=== PATIENT | female | born 1945 | race African-American/Black ===

== ENCOUNTER 2016-11-17 10:55 | Inpatient (IN) | payer MEDICARE, OTHER ==
[~2016-11-17] VITALS: Ht 162.6 cm; Wt 115.0 kg
[~2016-11-17 10:55] MED LIST: AMLO-511 PO; ASPI-1093 PO; ATOR20TA65 PO; CARV12 PO; FURO20 PO; HALO5TAB PO; IBUP-1546 PO; IPRA4AER IH; ISOS60TA4 PO; MONT10TA21 PO; OMEP20 PO; QUET25TA PO; VALS160T2 PO
[2016-11-17 11:08] LABS: GLUCOSE,POINT OF CARE 52 MG/DL (70-110)
[2016-11-17] MEDS ORDERED: IPRATROPIUM BROMIDE 0.5 MG/2.5 ML NEB SOLUTION NEB ONE (11:15)
[2016-11-17] MEDS ORDERED: ALBUTEROL SULFATE 5 MG/ML 20 ML NEB SOLN [BULK] NEB ONE (11:15)
[2016-11-17 11:29] LABS: BASOPHILS % (AUTO) 0.1 % (0.0-2.0); EOSINOPHILS % (AUTO) 0 % (1.0-6.0); HEMATOCRIT 38.3 % (36-46); LYMPHOCYTES # (AUTO) 0.6 K/uL (1.0-4.8); LYMPHOCYTES % (AUTO) 4.7 % (22.0-44.0); MEAN CORPUSCULAR HEMOGLOBIN 25.8 pg (26.0-34.0); MEAN CORPUSCULAR HGB CONC 31.3 G/dL (31.0-37.0); MEAN CORPUSCULAR VOLUME 82 fL (80-100); MONOCYTES # (AUTO) 0.9 K/uL (0.1-1.0); MONOCYTES % (AUTO) 7.7 % (2.0-9.0); NEUTROPHILS # (AUTO) 10.5 K/uL (1.8-7.7); PLATELET COUNT (AUTO) 282 K/uL (150-450); RED BLOOD CELL COUNT(AUTO) 4.64 MIL/uL (4.00-5.20); RED CELL DISTRIBUTION WIDTH 20.1 % (11.5-14.5)
[2016-11-17 11:37] LABS: NEUTROPHILS % (AUTO) 87.5 % (40.0-70.0)
[2016-11-17 11:44] LABS: ANION GAP 13 mmol/L (8-16); CALCIUM, TOTAL 9.3 mg/dL (8.8-10.5); CARBON DIOXIDE 25 mmol/L (22-29); CHLORIDE 102 mmol/L (98-107); CREATININE 1.67 mg/dL (0.60-1.30); GLOMERULAR FILTR. RATE CALC 37 mL/min (>60); POTASSIUM 5.4 mmol/L (3.5-5.1); SODIUM SERUM 140 mmol/L (136-145); UREA NITROGEN, BLOOD 24 mg/dL (7-18)
[2016-11-17 11:47] LABS: GLUCOSE,POINT OF CARE 45 MG/DL (70-110)
[2016-11-17 11:50] LABS: ALANINE AMINOTRANSFERASE 52 U/L (12-78); ALBUMIN 3.6 g/dL (3.4-5.0); ASPARTATE AMINOTRANSFERASE 137 U/L (15-37); BILIRUBIN,TOTAL 2.1 mg/dL (0.1-1.0); TOTAL PROTEIN, SERUM 6.9 g/dL (6.4-8.2)
[2016-11-17] MEDS ORDERED: DEXTROSE 50%-WATER 25 GM/50 ML SYRINGE IVP ONE (12:00)
[2016-11-17 12:04] LABS: B-TYPE NATRIURETIC PEPTIDE 1790 pg/mL (0-100)
[2016-11-17] MEDS ORDERED: SODIUM POLYSTYRENE SULFONATE 15 GM/60 ML SUSPENSION BOTTLE PO ONE (12:15)
[2016-11-17] MEDS ORDERED: SODIUM CHLORIDE 0.9% 500 ML IV ONE (12:15)
[2016-11-17 12:27] LABS: GLUCOSE,POINT OF CARE 131 MG/DL (70-110)
[2016-11-17] MEDS ORDERED: CALCIUM GLUCONATE 100 MG/ML 10 ML IVP ONE (12:30)
[2016-11-17 12:57] LABS: GLUCOSE,POINT OF CARE 185 MG/DL (70-110)
[2016-11-17] MEDS ORDERED: FUROSEMIDE 40 MG/4 ML VIAL IVP ONE (13:15)
[2016-11-17] MEDS ORDERED: LABETALOL HCL 5 MG/ML 20 ML VIAL IVP ONE ×2 (13:45→14:30)
[2016-11-17] MEDS ORDERED: ACETAMINOPHEN 325 MG TABLET PO PRN ×2 (14:00→15:00)
[2016-11-17] MEDS ORDERED: ONDANSETRON HCL 4 MG/2 ML VIAL IVP PRN (14:00)
[2016-11-17] MEDS ORDERED: 0.9% SODIUM CHLORIDE 10 ML SYRINGE IVP PRN (14:00)
[2016-11-17 14:32] LABS: GLUCOSE,POINT OF CARE 118 MG/DL (70-110)
[2016-11-17] MEDS ORDERED: ALBUTEROL SULFATE 2.5 MG/0.5 ML NEB SOLUTION NEB PRN (15:00)
[2016-11-17] MEDS: AmLODIPine BESYLATE 10 MG TABLET PO SCH (15:15)
[2016-11-17] MEDS ORDERED: VANCOMYCIN HCL 1.5 GM in DEXTROSE 5%-WATER 250 ML IV ONE (16:00)
[2016-11-17] MEDS: HEPARIN SODIUM,PORCINE 5,000 UNITS/ML VIAL SQ SCH ×2 (16:19→23:55)
[2016-11-17] MEDS ORDERED: FUROSEMIDE 40 MG/4 ML VIAL IVP SCH (21:00)
[2016-11-17 21:23] VITALS: BP 149/78
[2016-11-17] MEDS: DOCUSATE SODIUM 100 MG CAPSULE PO SCH (21:34)
[2016-11-17 23:38] VITALS: BP 148/74
[2016-11-18] VITALS (7 sets, daily range): BP systolic 140–151; BP diastolic 73–96
[2016-11-18] MEDS: MORPHINE SULFATE 2 MG/ML SYRINGE IVP PRN ×2 (04:34→20:30)
[2016-11-18 06:38] LABS: EOSINOPHILS % (AUTO) 0.1 % (1.0-6.0); HEMATOCRIT 37.7 % (36-46); HEMOGLOBIN 11.8 g/dL (12.0-16.0); LYMPHOCYTES # (AUTO) 1.1 K/uL (1.0-4.8); MEAN CORPUSCULAR HEMOGLOBIN 25.9 pg (26.0-34.0); MEAN CORPUSCULAR HGB CONC 31.2 G/dL (31.0-37.0); MEAN CORPUSCULAR VOLUME 83 fL (80-100); MONOCYTES # (AUTO) 1.4 K/uL (0.1-1.0); MONOCYTES % (AUTO) 10.5 % (2.0-9.0); NEUTROPHILS # (AUTO) 10.8 K/uL (1.8-7.7); NEUTROPHILS % (AUTO) 81.4 % (40.0-70.0); PLATELET COUNT (AUTO) 277 K/uL (150-450); RED BLOOD CELL COUNT(AUTO) 4.54 MIL/uL (4.00-5.20); RED CELL DISTRIBUTION WIDTH 20.5 % (11.5-14.5); WHITE BLOOD COUNT (AUTO) 13.3 K/uL (4.5-11.0)
[2016-11-18 06:50] LABS: CALCIUM, TOTAL 8.7 mg/dL (8.8-10.5); CREATININE 1.49 mg/dL (0.60-1.30); POTASSIUM 4.4 mmol/L (3.5-5.1)
[2016-11-18] MEDS: HEPARIN SODIUM,PORCINE 5,000 UNITS/ML VIAL SQ SCH ×2 (08:20→17:35)
[2016-11-18] MEDS: AmLODIPine BESYLATE 10 MG TABLET PO SCH (08:20)
[2016-11-18] MEDS: PANTOPRAZOLE SODIUM 40 MG DR TABLET PO SCH (08:20)
[2016-11-18] MEDS: DOCUSATE SODIUM 100 MG CAPSULE PO SCH ×2 (08:21→20:31)
[2016-11-18] MEDS: ASPIRIN 81 MG CHEWABLE TABLET PO SCH (08:21)
[2016-11-18] MEDS: VANCOMYCIN HCL 1.5 GM in DEXTROSE 5%-WATER 250 ML IV SCH (08:21)
[2016-11-18] MEDS: OxyCODONE HCL/ACETAMINOPHEN 5-325 MG TABLET PO PRN (08:21)
[2016-11-18] MEDS ORDERED: SODIUM CHLORIDE 0.9% 500 ML IV ONE (08:29)
[2016-11-18] MEDS ORDERED: FUROSEMIDE 40 MG/4 ML VIAL IVP SCH (09:00)
[2016-11-18 10:27] LABS: RBC MORPHOLOGY COMMENT ABNORMAL RBC MORPH
[2016-11-18] MEDS: FUROSEMIDE 40 MG/4 ML VIAL IVP SCH (20:30)
[2016-11-18] MEDS: NYSTATIN 15 GM POWDER BOTTLE TP SCH (21:06)
[2016-11-19] MEDS: HEPARIN SODIUM,PORCINE 5,000 UNITS/ML VIAL SQ SCH ×4 (00:15→23:43)
[2016-11-19 04:53] VITALS: BP 124/84
[2016-11-19] MEDS: OxyCODONE HCL/ACETAMINOPHEN 5-325 MG TABLET PO PRN (04:53)
[2016-11-19 06:46] LABS: EOSINOPHILS # (AUTO) 0.01 K/uL (0.00-0.70); HEMATOCRIT 36.7 % (36-46); HEMOGLOBIN 11.7 g/dL (12.0-16.0); LYMPHOCYTES # (AUTO) 1.2 K/uL (1.0-4.8); LYMPHOCYTES % (AUTO) 9.8 % (22.0-44.0); MEAN CORPUSCULAR HEMOGLOBIN 26.1 pg (26.0-34.0); MEAN CORPUSCULAR VOLUME 82 fL (80-100); MONOCYTES # (AUTO) 1.2 K/uL (0.1-1.0); MONOCYTES % (AUTO) 10.3 % (2.0-9.0); NEUTROPHILS # (AUTO) 9.5 K/uL (1.8-7.7); NEUTROPHILS % (AUTO) 79.8 % (40.0-70.0); PLATELET COUNT (AUTO) 247 K/uL (150-450); RED BLOOD CELL COUNT(AUTO) 4.49 MIL/uL (4.00-5.20); RED CELL DISTRIBUTION WIDTH 19.8 % (11.5-14.5); WHITE BLOOD COUNT (AUTO) 11.9 K/uL (4.5-11.0)
[2016-11-19 06:57] LABS: CALCIUM, TOTAL 8.2 mg/dL (8.8-10.5); CREATININE 1.28 mg/dL (0.60-1.30); POTASSIUM 3.4 mmol/L (3.5-5.1)
[2016-11-19 07:45] VITALS: BP 123/78
[2016-11-19 08:20] LABS: RBC MORPHOLOGY COMMENT ABNORMAL RBC MORPH
[2016-11-19] MEDS: FUROSEMIDE 40 MG/4 ML VIAL IVP SCH ×2 (08:31→19:24)
[2016-11-19] MEDS: DOCUSATE SODIUM 100 MG CAPSULE PO SCH ×2 (08:31→19:24)
[2016-11-19] MEDS: ASPIRIN 81 MG CHEWABLE TABLET PO SCH (08:31)
[2016-11-19] MEDS: AmLODIPine BESYLATE 10 MG TABLET PO SCH (08:32)
[2016-11-19] MEDS: PANTOPRAZOLE SODIUM 40 MG DR TABLET PO SCH (08:32)
[2016-11-19] MEDS: MORPHINE SULFATE 2 MG/ML SYRINGE IVP PRN (08:50)
[2016-11-19] MEDS: NYSTATIN 15 GM POWDER BOTTLE TP SCH ×2 (08:51→19:24)
[2016-11-19] MEDS: VANCOMYCIN HCL 1.5 GM in DEXTROSE 5%-WATER 250 ML IV SCH (11:10)
[2016-11-19 11:29] VITALS: BP 156/85
[2016-11-19] MEDS ORDERED: 0.9% SODIUM CHLORIDE 5 ML NEB SOLUTION NEB ONE ×2 (13:45→23:52)
[2016-11-19 15:30] VITALS: BP 129/75
[2016-11-19] MEDS: POTASSIUM CHLORIDE 20 MEQ ER TABLET PO PRN (19:24)
[2016-11-19 19:38] VITALS: BP 132/91
[2016-11-19 23:31] VITALS: BP 136/90
[2016-11-20 04:58] VITALS: BP 133/77
[2016-11-20 05:51] LABS: BASOPHILS % (AUTO) 0.3 % (0.0-2.0); EOSINOPHILS % (AUTO) 0.4 % (1.0-6.0); HEMATOCRIT 38.8 % (36-46); HEMOGLOBIN 11.9 g/dL (12.0-16.0); LYMPHOCYTES # (AUTO) 1.1 K/uL (1.0-4.8); LYMPHOCYTES % (AUTO) 11.8 % (22.0-44.0); MEAN CORPUSCULAR HEMOGLOBIN 25.4 pg (26.0-34.0); MEAN CORPUSCULAR HGB CONC 30.7 G/dL (31.0-37.0); MEAN CORPUSCULAR VOLUME 83 fL (80-100); MONOCYTES % (AUTO) 10.2 % (2.0-9.0); NEUTROPHILS # (AUTO) 7.4 K/uL (1.8-7.7); NEUTROPHILS % (AUTO) 77.3 % (40.0-70.0); PLATELET COUNT (AUTO) 245 K/uL (150-450); RED BLOOD CELL COUNT(AUTO) 4.69 MIL/uL (4.00-5.20); RED CELL DISTRIBUTION WIDTH 20.1 % (11.5-14.5); WHITE BLOOD COUNT (AUTO) 9.5 K/uL (4.5-11.0)
[2016-11-20 06:02] LABS: CALCIUM, TOTAL 7.8 mg/dL (8.8-10.5); CREATININE 1.1 mg/dL (0.60-1.30)
[2016-11-20 07:10] VITALS: BP 106/74
[2016-11-20] MEDS: HEPARIN SODIUM,PORCINE 5,000 UNITS/ML VIAL SQ SCH ×3 (08:40→23:39)
[2016-11-20] MEDS: FUROSEMIDE 40 MG/4 ML VIAL IVP SCH ×2 (08:40→21:11)
[2016-11-20] MEDS: AmLODIPine BESYLATE 10 MG TABLET PO SCH (08:40)
[2016-11-20] MEDS: PANTOPRAZOLE SODIUM 40 MG DR TABLET PO SCH (08:40)
[2016-11-20] MEDS: ASPIRIN 81 MG CHEWABLE TABLET PO SCH (08:40)
[2016-11-20] MEDS: MULTIVITAMINS WITH MINERALS, THERAPEUTIC TABLET PO SCH (08:40)
[2016-11-20] MEDS: DOCUSATE SODIUM 100 MG CAPSULE PO SCH ×2 (08:40→21:11)
[2016-11-20] MEDS: VANCOMYCIN HCL 1 GM/D5% WATER 200 ML IV SCH ×2 (08:41→21:11)
[2016-11-20] MEDS: NYSTATIN 15 GM POWDER BOTTLE TP SCH ×2 (08:42→21:13)
[2016-11-20 08:53] LABS: RBC MORPHOLOGY COMMENT ABNORMAL RBC MORPH
[2016-11-20] MEDS: POTASSIUM CHLORIDE 20 MEQ ER TABLET PO PRN (08:53)
[2016-11-20 11:34] VITALS: BP 128/98
[2016-11-20 16:23] VITALS: BP 119/80
[2016-11-20 19:27] VITALS: BP 140/82
[2016-11-20] MEDS ORDERED: 0.9% SODIUM CHLORIDE 10 ML SYRINGE IVP PRN (22:15)
[2016-11-20] MEDS: POTASSIUM CHL 10 MEQ/WATER 50 ML IV PRN (23:39)
[2016-11-20 23:58] VITALS: BP 144/77
[2016-11-21] MEDS: POTASSIUM CHL 10 MEQ/WATER 50 ML IV PRN ×3 (00:55→03:41)
[2016-11-21 04:48] VITALS: BP 138/83
[2016-11-21 06:27] LABS: ANION GAP 6 mmol/L (8-16); CALCIUM, TOTAL 7.9 mg/dL (8.8-10.5); CARBON DIOXIDE 38 mmol/L (22-29); CHLORIDE 97 mmol/L (98-107); CREATININE 0.88 mg/dL (0.60-1.30); GLOMERULAR FILTR. RATE CALC > 60 mL/min (>60); SODIUM SERUM 141 mmol/L (136-145); UREA NITROGEN, BLOOD 14 mg/dL (7-18)
[2016-11-21 07:59] VITALS: BP 141/87
[2016-11-21] MEDS: VANCOMYCIN HCL 1 GM/D5% WATER 200 ML IV SCH ×2 (08:20→20:44)
[2016-11-21] MEDS: FUROSEMIDE 40 MG/4 ML VIAL IVP SCH ×2 (08:21→20:45)
[2016-11-21] MEDS: PANTOPRAZOLE SODIUM 40 MG DR TABLET PO SCH (08:37)
[2016-11-21] MEDS: DOCUSATE SODIUM 100 MG CAPSULE PO SCH ×2 (08:37→20:45)
[2016-11-21] MEDS: ASPIRIN 81 MG CHEWABLE TABLET PO SCH (08:37)
[2016-11-21] MEDS: AmLODIPine BESYLATE 10 MG TABLET PO SCH (08:37)
[2016-11-21] MEDS: HEPARIN SODIUM,PORCINE 5,000 UNITS/ML VIAL SQ SCH ×2 (08:38→18:08)
[2016-11-21] MEDS: NYSTATIN 15 GM POWDER BOTTLE TP SCH ×2 (08:38→20:45)
[2016-11-21] MEDS: MULTIVITAMINS WITH MINERALS, THERAPEUTIC TABLET PO SCH (08:38)
[2016-11-21 12:00] VITALS: BP 134/73
[2016-11-21 15:47] VITALS: BP 112/58
[2016-11-21] MEDS: POTASSIUM CHLORIDE 20 MEQ ER TABLET PO PRN ×2 (18:40→20:44)
[2016-11-21 19:58] VITALS: BP 137/78
[2016-11-22 00:23] VITALS: BP 159/84
[2016-11-22] MEDS: HEPARIN SODIUM,PORCINE 5,000 UNITS/ML VIAL SQ SCH ×3 (00:24→16:19)
[2016-11-22] MEDS: POTASSIUM CHLORIDE 20 MEQ ER TABLET PO PRN ×2 (04:21→14:11)
[2016-11-22 05:05] VITALS: BP 157/90
[2016-11-22] MEDS: MULTIVITAMINS WITH MINERALS, THERAPEUTIC TABLET PO SCH (07:55)
[2016-11-22] MEDS: DOCUSATE SODIUM 100 MG CAPSULE PO SCH (07:55)
[2016-11-22] MEDS: FUROSEMIDE 40 MG/4 ML VIAL IVP SCH (07:55)
[2016-11-22] MEDS: ASPIRIN 81 MG CHEWABLE TABLET PO SCH (07:55)
[2016-11-22] MEDS: AmLODIPine BESYLATE 10 MG TABLET PO SCH (07:55)
[2016-11-22] MEDS: PANTOPRAZOLE SODIUM 40 MG DR TABLET PO SCH (07:55)
[2016-11-22] MEDS: VANCOMYCIN HCL 1 GM/D5% WATER 200 ML IV SCH (07:56)
[2016-11-22 07:57] VITALS: BP 146/103
[2016-11-22] MEDS: NYSTATIN 15 GM POWDER BOTTLE TP SCH (07:58)
[2016-11-22 09:44] LABS: ANION GAP 2 mmol/L (8-16); CALCIUM, TOTAL 7.9 mg/dL (8.8-10.5); CHLORIDE 93 mmol/L (98-107); CREATININE 0.89 mg/dL (0.60-1.30); GLOMERULAR FILTR. RATE CALC > 60 mL/min (>60); POTASSIUM 3.4 mmol/L (3.5-5.1); SODIUM SERUM 137 mmol/L (136-145); UREA NITROGEN, BLOOD 11 mg/dL (7-18)
[2016-11-22 09:46] LABS: CARBON DIOXIDE 42 mmol/L (22-29)
[2016-11-22 11:49] VITALS: BP 146/80
[2016-11-22 15:41] VITALS: BP 148/90
[2016-11-22] MEDS ORDERED: FUROSEMIDE 40 MG TABLET PO SCH (21:00)
== END 2016-11-22 18:41 | DRG 682 ==
LOC: EMS 10:57 → 5N 16:01 → 6N 11-18 21:00
PROVIDERS: ADMIT Internal Medicine; ATTEND Internal Medicine
DX: N17.9 Acute kidney failure, unspecified (principal); I50.33 Acute on chronic diastolic (congestive) heart failure; E44.0 Moderate protein-calorie malnutrition; J44.1 Chronic obstructive pulmonary disease with (acute) exacerbation; I13.0 Hypertensive heart and chronic kidney disease with heart failure and stage 1 through stage 4 chronic kidney disease, or unspecified chronic kidney disease; Z68.41 Body mass index [BMI] 40.0-44.9, adult; N18.3 Chronic kidney disease, stage 3 (moderate); E66.01 Morbid (severe) obesity due to excess calories; N61.0 Mastitis without abscess; J45.909 Unspecified asthma, uncomplicated; E78.00 Pure hypercholesterolemia, unspecified; F17.210 Nicotine dependence, cigarettes, uncomplicated; E11.649 Type 2 diabetes mellitus with hypoglycemia without coma; E11.65 Type 2 diabetes mellitus with hyperglycemia; M19.90 Unspecified osteoarthritis, unspecified site; F20.9 Schizophrenia, unspecified; I25.10 Atherosclerotic heart disease of native coronary artery without angina pectoris; Z79.4 Long term (current) use of insulin; Z99.81 Dependence on supplemental oxygen; Z79.84 Long term (current) use of oral hypoglycemic drugs; Z79.82 Long term (current) use of aspirin; Z79.51 Long term (current) use of inhaled steroids; Z79.899 Other long term (current) drug therapy; Z90.710 Acquired absence of both cervix and uterus; Z90.49 Acquired absence of other specified parts of digestive tract; Z71.6 Tobacco abuse counseling; Z86.73 Personal history of transient ischemic attack (TIA), and cerebral infarction without residual deficits
CPT/HCPCS: 71250; 82948; 82962; 84132; 93005; 94640; 96361; 96374; 96375; 96376; 97163; 97530; 99285; G0480; J0610; J1644; J1940; J2270; J3370; J3480; J3490; J7030; J7040; J7060

== ENCOUNTER 2016-12-08 18:31 | Inpatient (IN) | payer MEDICARE, OTHER ==
[~2016-12-08] VITALS: Ht 162.6 cm; Wt 88.7 kg
[~2016-12-08 18:31] MED LIST changes: -AMLO-511 PO; -FURO20 PO; -IBUP-1546 PO; -ISOS60TA4 PO; -VALS160T2 PO
[2016-12-08] MEDS ORDERED: PANT40TA25 PO (18:47)
[2016-12-08] MEDS ORDERED: HEPA100D17 SQ (18:47)
[2016-12-08] MEDS ORDERED: AMLO-512 PO (18:47)
[2016-12-08] MEDS ORDERED: FURO40 PO (18:47)
[2016-12-08] MEDS ORDERED: DSS100 PO (18:47)
[2016-12-08] MEDS ORDERED: FUROSEMIDE 40 MG/4 ML VIAL IVP ONE (19:00)
[2016-12-08] MEDS ORDERED: CefTRIAXone 1 GM/DEXTROSE 50 ML IV ONE (19:00)
[2016-12-08 19:01] LABS: GLUCOSE,POINT OF CARE 135 MG/DL (70-110)
[2016-12-08] MEDS ORDERED: IPRATROPIUM BROMIDE 0.5 MG/2.5 ML NEB SOLUTION NEB ONE (19:15)
[2016-12-08] MEDS ORDERED: ALBUTEROL SULFATE 5 MG/ML 20 ML NEB SOLN [BULK] NEB ONE (19:15)
[2016-12-08 19:41] LABS: HEMATOCRIT 32.8 % (36-46); HEMOGLOBIN 10.7 g/dL (12.0-16.0); MEAN CORPUSCULAR HEMOGLOBIN 26.2 pg (26.0-34.0); MEAN CORPUSCULAR HGB CONC 32.7 G/dL (31.0-37.0); MEAN CORPUSCULAR VOLUME 80 fL (80-100); PLATELET COUNT (AUTO) 285 K/uL (150-450); RED BLOOD CELL COUNT(AUTO) 4.09 MIL/uL (4.00-5.20); RED CELL DISTRIBUTION WIDTH 20.2 % (11.5-14.5); WHITE BLOOD COUNT (AUTO) 16.8 K/uL (4.5-11.0)
[2016-12-08 19:47] LABS: CALCIUM, TOTAL 9.2 mg/dL (8.8-10.5); CREATININE 1.21 mg/dL (0.60-1.30); GLOMERULAR FILTR. RATE CALC 53 mL/min (>60); POTASSIUM 3.5 mmol/L (3.5-5.1); UREA NITROGEN, BLOOD 25 mg/dL (7-18)
[2016-12-08 19:48] LABS: ANION GAP 8 mmol/L (8-16); CARBON DIOXIDE 33 mmol/L (22-29); CHLORIDE 94 mmol/L (98-107); SODIUM SERUM 135 mmol/L (136-145)
[2016-12-08 19:52] LABS: INR 1.3 (0.9-1.1); PROTHROMBIN TIME 13.7 SEC (9.4-11.6)
[2016-12-08 19:53] LABS: ALANINE AMINOTRANSFERASE 53 U/L (12-78); ALBUMIN 2.9 g/dL (3.4-5.0)
[2016-12-08 19:55] LABS: LACTIC ACID 1.6 mmol/L (0.4-2.0)
[2016-12-08] MEDS ORDERED: OXYGEN THERAPY IH SCH (20:00)
[2016-12-08 20:03] LABS: APPEARANCE,URINE CLOUDY (CLEAR); GLUCOSE, URINE (UA) NEGATIVE (NEGATIVE); KETONES,URINE NEGATIVE (NEGATIVE); LEUKOCYTE ESTERASE ,URINE TRACE (NEGATIVE); OCCULT BLOOD,URINE NEGATIVE (NEGATIVE); PH,URINE 5.5 (5.0-8.0); PROTEIN,URINE SEE CONFIRM (NEGATIVE)
[2016-12-08 20:09] LABS: ASPARTATE AMINOTRANSFERASE 77 U/L (15-37); BILIRUBIN,TOTAL 1.8 mg/dL (0.1-1.0); CREATINE KINASE, TOTAL 27 U/L (26-192); TOTAL PROTEIN, SERUM 7.5 g/dL (6.4-8.2)
[2016-12-08 20:11] LABS: B-TYPE NATRIURETIC PEPTIDE 1630 pg/mL (0-100)
[2016-12-08] MEDS ORDERED: ACETAMINOPHEN 500 MG TABLET PO ONE (20:15)
[2016-12-08 20:22] LABS: AMORPHOUS SEDIMENT,UR Few /LPF (None Seen); RBC,URINE 0-2 /HPF (0-2); SQUAMOUS EPITHELIAL CELL,UR Few /LPF (None Seen); SULFOSALICYLIC ACID,URINE 2+ (Negative)
[2016-12-08 20:35] LABS: INFLUENZA TYPE B NEGATIVE FOR TYPE B (NEGATIVE)
[2016-12-08 20:41] LABS: ABG A-A DIFF O2 128.3 mmHg (10-20.0); ABG OXYHEMOGLOBIN 82.3 % (94.0-100.0); ABG PCO2 56 mmHg (35-45); ABG PH 7.409 (7.35-7.450); TEMPERATURE, FAHRENHEIT, BG 100.3 FAHREN (96.0-98.6)
[2016-12-08 20:42] LABS: ALLEN TEST, BLOOD GAS Positive; IPAP, BG 16 cm H2O
[2016-12-08 20:57] LABS: BAND NEUTROPHILS % (MANUAL) 35 % (1-5); LYMPHOCYTES % (MANUAL) 6 % (22-44); TOTAL CELLS COUNTED 100
[2016-12-08 20:58] LABS: RBC MORPHOLOGY COMMENT ABNORMAL RBC MORPH
[2016-12-08 21:03] LABS: PROCALCITONIN (PCT) 0.64 ng/mL (<0.50)
[2016-12-08] MEDS ORDERED: ACETAMINOPHEN 325 MG TABLET PO PRN (21:45)
[2016-12-08] MEDS ORDERED: MAGNESIUM HYDROXIDE SUSPENSION 30 ML UDCUP PO PRN (21:45)
[2016-12-08 22:49] VITALS: BP 146/80
[2016-12-08] MEDS ORDERED: VANCOMYCIN HCL 1 GM/D5% WATER 200 ML IV ONE (23:00)
[2016-12-08] MEDS: ALBUTEROL SULFATE 2.5 MG/0.5 ML NEB SOLUTION NEB SCH (23:00)
[2016-12-08] MEDS: IPRATROPIUM BROMIDE 0.5 MG/2.5 ML NEB SOLUTION NEB SCH (23:00)
[2016-12-08] MEDS ORDERED: VANCOMYCIN HCL 1.5 GM in DEXTROSE 5%-WATER 250 ML IV ONE (23:00)
[2016-12-08] MEDS: PIPERACILLIN/TAZO 3.375 GM/D5W 50 ML IV SCH (23:58)
[2016-12-08] MEDS: HEPARIN SODIUM,PORCINE 5,000 UNITS/ML VIAL SQ SCH (23:58)
[2016-12-09] MEDS ORDERED: VANCOMYCIN HCL 1 GM/D5% WATER 200 ML IV ONE (01:00)
[2016-12-09] MEDS: ALBUTEROL SULFATE 2.5 MG/0.5 ML NEB SOLUTION NEB SCH ×6 (02:49→23:03)
[2016-12-09] MEDS: IPRATROPIUM BROMIDE 0.5 MG/2.5 ML NEB SOLUTION NEB SCH ×6 (02:49→23:03)
[2016-12-09 04:32] VITALS: BP 136/83
[2016-12-09] MEDS: PIPERACILLIN/TAZO 3.375 GM/D5W 50 ML IV SCH ×4 (06:00→23:25)
[2016-12-09 06:13] LABS: BASOPHILS % (AUTO) 0.2 % (0.0-2.0); EOSINOPHILS % (AUTO) 0 % (1.0-6.0); HEMATOCRIT 33.1 % (36-46); HEMOGLOBIN 10.4 g/dL (12.0-16.0); LYMPHOCYTES % (AUTO) 5.8 % (22.0-44.0); MEAN CORPUSCULAR HEMOGLOBIN 25.7 pg (26.0-34.0); MEAN CORPUSCULAR HGB CONC 31.5 G/dL (31.0-37.0); MEAN CORPUSCULAR VOLUME 82 fL (80-100); MONOCYTES # (AUTO) 0.7 K/uL (0.1-1.0); MONOCYTES % (AUTO) 3.9 % (2.0-9.0); NEUTROPHILS # (AUTO) 15.6 K/uL (1.8-7.7); PLATELET COUNT (AUTO) 281 K/uL (150-450); RED BLOOD CELL COUNT(AUTO) 4.06 MIL/uL (4.00-5.20); RED CELL DISTRIBUTION WIDTH 21.3 % (11.5-14.5); WHITE BLOOD COUNT (AUTO) 17.3 K/uL (4.5-11.0)
[2016-12-09 06:28] LABS: ANION GAP 6 mmol/L (8-16); CALCIUM, TOTAL 8.9 mg/dL (8.8-10.5); CARBON DIOXIDE 36 mmol/L (22-29); CHLORIDE 95 mmol/L (98-107); CREATININE 1.07 mg/dL (0.60-1.30); GLOMERULAR FILTR. RATE CALC > 60 mL/min (>60); POTASSIUM 3.1 mmol/L (3.5-5.1); SODIUM SERUM 137 mmol/L (136-145); UREA NITROGEN, BLOOD 23 mg/dL (7-18)
[2016-12-09 06:44] LABS: NEUTROPHILS % (AUTO) 90.1 % (40.0-70.0)
[2016-12-09 07:45] VITALS: BP 124/80
[2016-12-09] MEDS: HEPARIN SODIUM,PORCINE 5,000 UNITS/ML VIAL SQ SCH ×4 (07:53→23:38)
[2016-12-09] MEDS: FUROSEMIDE 40 MG/4 ML VIAL IVP SCH ×2 (07:55→20:16)
[2016-12-09] MEDS ORDERED: PNEUMOCOCCAL VACCINE POLYVALENT 0.5 ML VIAL [PPSV23] IM ONE (08:00)
[2016-12-09] MEDS ORDERED: VANCOMYCIN HCL 1.5 GM in DEXTROSE 5%-WATER 250 ML IV SCH (08:00)
[2016-12-09] MEDS: DOCUSATE SODIUM 100 MG CAPSULE PO SCH ×2 (08:16→20:16)
[2016-12-09] MEDS: ASPIRIN 81 MG CHEWABLE TABLET PO SCH (08:16)
[2016-12-09] MEDS: PANTOPRAZOLE SODIUM 40 MG DR TABLET PO SCH (08:16)
[2016-12-09] MEDS ORDERED: POTASSIUM CHLORIDE 20 MEQ ER TABLET PO PRN (09:15)
[2016-12-09] MEDS: POTASSIUM CHL 10 MEQ/WATER 50 ML IV PRN ×3 (10:15→14:10)
[2016-12-09] MEDS ORDERED: 0.9% SODIUM CHLORIDE 10 ML SYRINGE IVP PRN (11:15)
[2016-12-09 11:31] VITALS: BP 149/81
[2016-12-09 15:49] VITALS: BP 132/76
[2016-12-09] MEDS ORDERED: HALOPERIDOL LACTATE 5 MG/ML VIAL IVP PRN (16:45)
[2016-12-09] MEDS: MethylPREDNISolone SOD SUCC 125 MG/2 ML VIAL IVP SCH ×2 (17:11→23:24)
[2016-12-09] MEDS ORDERED: CefTRIAXone 1 GM/DEXTROSE 50 ML IV SCH (18:00)
[2016-12-09 19:45] VITALS: BP 135/82
[2016-12-09] MEDS: VANCOMYCIN HCL 1 GM/D5% WATER 200 ML IV SCH (20:16)
[2016-12-09] MEDS: ZOLPIDEM TARTRATE 10 MG TABLET PO PRN (23:24)
[2016-12-09 23:41] VITALS: BP 134/76
[2016-12-10] MEDS: ALBUTEROL SULFATE 2.5 MG/0.5 ML NEB SOLUTION NEB SCH ×6 (03:09→23:12)
[2016-12-10] MEDS: IPRATROPIUM BROMIDE 0.5 MG/2.5 ML NEB SOLUTION NEB SCH ×6 (03:09→23:11)
[2016-12-10 03:23] VITALS: BP 138/76
[2016-12-10] MEDS: PIPERACILLIN/TAZO 3.375 GM/D5W 50 ML IV SCH ×3 (05:17→18:14)
[2016-12-10] MEDS: MethylPREDNISolone SOD SUCC 125 MG/2 ML VIAL IVP SCH ×3 (05:17→18:14)
[2016-12-10 07:03] LABS: ANION GAP 7 mmol/L (8-16); CALCIUM, TOTAL 9.2 mg/dL (8.8-10.5); CARBON DIOXIDE 35 mmol/L (22-29); CHLORIDE 94 mmol/L (98-107); CREATININE 1.06 mg/dL (0.60-1.30); GLOMERULAR FILTR. RATE CALC > 60 mL/min (>60); POTASSIUM 3.6 mmol/L (3.5-5.1); SODIUM SERUM 136 mmol/L (136-145); UREA NITROGEN, BLOOD 21 mg/dL (7-18)
[2016-12-10 07:08] LABS: EOSINOPHILS % (AUTO) 0 % (1.0-6.0); HEMATOCRIT 32.5 % (36-46); HEMOGLOBIN 10.4 g/dL (12.0-16.0); LYMPHOCYTES # (AUTO) 0.6 K/uL (1.0-4.8); LYMPHOCYTES % (AUTO) 3.9 % (22.0-44.0); MEAN CORPUSCULAR HEMOGLOBIN 26.2 pg (26.0-34.0); MEAN CORPUSCULAR VOLUME 82 fL (80-100); MONOCYTES # (AUTO) 0.2 K/uL (0.1-1.0); MONOCYTES % (AUTO) 1.7 % (2.0-9.0); PLATELET COUNT (AUTO) 256 K/uL (150-450); RED BLOOD CELL COUNT(AUTO) 3.97 MIL/uL (4.00-5.20); RED CELL DISTRIBUTION WIDTH 20.7 % (11.5-14.5); WHITE BLOOD COUNT (AUTO) 14.8 K/uL (4.5-11.0)
[2016-12-10 07:09] LABS: NEUTROPHILS % (AUTO) 94.5 % (40.0-70.0); RBC MORPHOLOGY COMMENT ABNORMAL RBC MORPH
[2016-12-10 08:12] VITALS: BP 141/85
[2016-12-10] MEDS: FUROSEMIDE 40 MG/4 ML VIAL IVP SCH ×2 (08:29→20:26)
[2016-12-10] MEDS: HEPARIN SODIUM,PORCINE 5,000 UNITS/ML VIAL SQ SCH ×2 (08:30→14:55)
[2016-12-10] MEDS: VANCOMYCIN HCL 1 GM/D5% WATER 200 ML IV SCH ×2 (08:30→20:26)
[2016-12-10] MEDS: PANTOPRAZOLE SODIUM 40 MG DR TABLET PO SCH (08:30)
[2016-12-10] MEDS: DOCUSATE SODIUM 100 MG CAPSULE PO SCH ×2 (08:30→20:27)
[2016-12-10] MEDS: ASPIRIN 81 MG CHEWABLE TABLET PO SCH (08:30)
[2016-12-10 11:24] VITALS: BP 150/87
[2016-12-10] MEDS ORDERED: HEPA500017 SQ (13:18)
[2016-12-10] MEDS: QUEtiapine FUMARATE 25 MG TABLET PO SCH ×2 (14:51→20:27)
[2016-12-10 16:13] VITALS: BP 147/82
[2016-12-10 19:40] VITALS: BP 150/88
[2016-12-10] MEDS: ZOLPIDEM TARTRATE 10 MG TABLET PO PRN (21:10)
[2016-12-11 00:09] VITALS: BP 141/82
[2016-12-11] MEDS: MethylPREDNISolone SOD SUCC 125 MG/2 ML VIAL IVP SCH ×2 (00:46→05:15)
[2016-12-11] MEDS: PIPERACILLIN/TAZO 3.375 GM/D5W 50 ML IV SCH ×4 (00:46→17:20)
[2016-12-11] MEDS: IPRATROPIUM BROMIDE 0.5 MG/2.5 ML NEB SOLUTION NEB SCH ×6 (03:35→23:00)
[2016-12-11] MEDS: ALBUTEROL SULFATE 2.5 MG/0.5 ML NEB SOLUTION NEB SCH ×6 (03:35→23:00)
[2016-12-11 04:18] VITALS: BP 138/79
[2016-12-11 07:13] VITALS: BP 147/90
[2016-12-11 07:38] LABS: EOSINOPHILS % (AUTO) 0 % (1.0-6.0); HEMATOCRIT 32.5 % (36-46); HEMOGLOBIN 10.2 g/dL (12.0-16.0); LYMPHOCYTES # (AUTO) 0.9 K/uL (1.0-4.8); LYMPHOCYTES % (AUTO) 4.9 % (22.0-44.0); MEAN CORPUSCULAR HEMOGLOBIN 25.4 pg (26.0-34.0); MEAN CORPUSCULAR HGB CONC 31.4 G/dL (31.0-37.0); MEAN CORPUSCULAR VOLUME 81 fL (80-100); MONOCYTES # (AUTO) 0.4 K/uL (0.1-1.0); NEUTROPHILS # (AUTO) 16.9 K/uL (1.8-7.7); PLATELET COUNT (AUTO) 239 K/uL (150-450); RED BLOOD CELL COUNT(AUTO) 4.03 MIL/uL (4.00-5.20); RED CELL DISTRIBUTION WIDTH 20.5 % (11.5-14.5); WHITE BLOOD COUNT (AUTO) 18.2 K/uL (4.5-11.0)
[2016-12-11 08:00] LABS: NEUTROPHILS % (AUTO) 93.1 % (40.0-70.0)
[2016-12-11 08:07] LABS: CALCIUM, TOTAL 9.1 mg/dL (8.8-10.5); CREATININE 1.29 mg/dL (0.60-1.30); POTASSIUM 3.5 mmol/L (3.5-5.1)
[2016-12-11] MEDS: HEPARIN SODIUM,PORCINE 5,000 UNITS/ML VIAL SQ SCH ×3 (08:45→15:22)
[2016-12-11] MEDS: DOCUSATE SODIUM 100 MG CAPSULE PO SCH ×2 (08:46→21:08)
[2016-12-11] MEDS: FUROSEMIDE 40 MG/4 ML VIAL IVP SCH ×2 (08:46→21:08)
[2016-12-11] MEDS: QUEtiapine FUMARATE 25 MG TABLET PO SCH ×2 (08:46→21:09)
[2016-12-11] MEDS: ASPIRIN 81 MG CHEWABLE TABLET PO SCH (08:46)
[2016-12-11] MEDS: PANTOPRAZOLE SODIUM 40 MG DR TABLET PO SCH (08:46)
[2016-12-11] MEDS: VANCOMYCIN HCL 1 GM/D5% WATER 200 ML IV SCH (08:47)
[2016-12-11 09:44] LABS: RBC MORPHOLOGY COMMENT ABNORMAL RBC MORPH
[2016-12-11 11:30] VITALS: BP 148/109
[2016-12-11] MEDS ORDERED: VANCOMYCIN HCL 1 GM/D5% WATER 200 ML IV PRN (12:00)
[2016-12-11 15:03] VITALS: BP 150/98
[2016-12-11] MEDS: MethylPREDNISolone SOD SUCC 40 MG/ML VIAL IVP SCH (17:19)
[2016-12-11 20:34] VITALS: BP 164/109
[2016-12-11] MEDS: OxyCODONE HCL/ACETAMINOPHEN 10-325 MG TABLET PO SCH (21:08)
[2016-12-11] MEDS: MUPIROCIN CALCIUM 2% 22 GM OINTMENT NASAL SCH (21:08)
[2016-12-12] VITALS (7 sets, daily range): BP systolic 140–161; BP diastolic 94–109
[2016-12-12] MEDS: PIPERACILLIN/TAZO 3.375 GM/D5W 50 ML IV SCH ×4 (00:27→18:28)
[2016-12-12] MEDS: MethylPREDNISolone SOD SUCC 40 MG/ML VIAL IVP SCH ×4 (00:27→18:28)
[2016-12-12] MEDS: HEPARIN SODIUM,PORCINE 5,000 UNITS/ML VIAL SQ SCH ×2 (00:27→08:22)
[2016-12-12] MEDS: ALBUTEROL SULFATE 2.5 MG/0.5 ML NEB SOLUTION NEB SCH ×6 (03:00→23:29)
[2016-12-12] MEDS: IPRATROPIUM BROMIDE 0.5 MG/2.5 ML NEB SOLUTION NEB SCH ×6 (03:00→23:29)
[2016-12-12] MEDS ORDERED: SODIUM CHLORIDE 0.9% 250 ML IV ONE (05:38)
[2016-12-12 06:53] LABS: CALCIUM, TOTAL 9.3 mg/dL (8.8-10.5); CREATININE 1.27 mg/dL (0.60-1.30); POTASSIUM 3.6 mmol/L (3.5-5.1)
[2016-12-12] MEDS: PANTOPRAZOLE SODIUM 40 MG DR TABLET PO SCH (08:21)
[2016-12-12] MEDS: FUROSEMIDE 40 MG/4 ML VIAL IVP SCH ×2 (08:21→20:08)
[2016-12-12] MEDS: DOCUSATE SODIUM 100 MG CAPSULE PO SCH ×2 (08:21→20:08)
[2016-12-12] MEDS: ENOXAPARIN SODIUM 40 MG/0.4 ML PF SYRINGE SQ SCH (08:21)
[2016-12-12] MEDS: ASPIRIN 81 MG CHEWABLE TABLET PO SCH (08:21)
[2016-12-12] MEDS: QUEtiapine FUMARATE 25 MG TABLET PO SCH ×2 (08:22→20:12)
[2016-12-12] MEDS: MUPIROCIN CALCIUM 2% 22 GM OINTMENT NASAL SCH ×2 (08:23→20:08)
[2016-12-12] MEDS ORDERED: POTASSIUM CHLORIDE 20 MEQ ER TABLET PO PRN (15:00)
[2016-12-12] MEDS: OxyCODONE HCL/ACETAMINOPHEN 10-325 MG TABLET PO SCH (20:08)
[2016-12-13] MEDS: PIPERACILLIN/TAZO 3.375 GM/D5W 50 ML IV SCH ×4 (00:50→17:06)
[2016-12-13] MEDS: MethylPREDNISolone SOD SUCC 40 MG/ML VIAL IVP SCH ×4 (00:51→17:06)
[2016-12-13] MEDS: ALBUTEROL SULFATE 2.5 MG/0.5 ML NEB SOLUTION NEB SCH ×5 (03:33→19:36)
[2016-12-13] MEDS: IPRATROPIUM BROMIDE 0.5 MG/2.5 ML NEB SOLUTION NEB SCH ×5 (03:33→19:35)
[2016-12-13 04:49] VITALS: BP 157/92
[2016-12-13 07:24] LABS: CALCIUM, TOTAL 9.1 mg/dL (8.8-10.5); CREATININE 1.27 mg/dL (0.60-1.30); POTASSIUM 3.9 mmol/L (3.5-5.1)
[2016-12-13 08:07] VITALS: BP 156/108
[2016-12-13] MEDS: FUROSEMIDE 40 MG/4 ML VIAL IVP SCH (08:30)
[2016-12-13] MEDS: ASPIRIN 81 MG CHEWABLE TABLET PO SCH (08:31)
[2016-12-13] MEDS: DOCUSATE SODIUM 100 MG CAPSULE PO SCH (08:31)
[2016-12-13] MEDS: PANTOPRAZOLE SODIUM 40 MG DR TABLET PO SCH (08:31)
[2016-12-13] MEDS: MUPIROCIN CALCIUM 2% 22 GM OINTMENT NASAL SCH (08:31)
[2016-12-13] MEDS: ENOXAPARIN SODIUM 40 MG/0.4 ML PF SYRINGE SQ SCH (08:32)
[2016-12-13] MEDS: QUEtiapine FUMARATE 25 MG TABLET PO SCH (08:32)
[2016-12-13 12:37] VITALS: BP 148/88
[2016-12-13] MEDS ORDERED: SODIUM CHLORIDE 0.9% 100 ML ONE (13:00)
[2016-12-13] MEDS ORDERED: AUD NEB (13:28)
[2016-12-13] MEDS ORDERED: FURO40I IV (13:29)
[2016-12-13] MEDS ORDERED: ENOX40DI9 SQ (13:29)
[2016-12-13] MEDS ORDERED: IPRNEB IH (13:30)
[2016-12-13] MEDS ORDERED: SM40I IVP (13:32)
[2016-12-13] MEDS ORDERED: MUPI15CR12 NASAL (13:34)
[2016-12-13] MEDS ORDERED: OXYC-522 PO (13:35)
[2016-12-13] MEDS ORDERED: PIPE3.377 IV (13:36)
[2016-12-13] MEDS ORDERED: ACET-2247 PO (13:38)
[2016-12-13] MEDS ORDERED: HALO5I IVP (13:41)
[2016-12-13] MEDS ORDERED: MOM30 PO (13:43)
[2016-12-13] MEDS ORDERED: VANC1FRO IVPB (13:49)
[2016-12-13 16:21] VITALS: BP 176/101
[2016-12-13] MEDS ORDERED: METOPROLOL TARTRATE 25 MG TABLET PO SCH (17:00)
[2016-12-13 18:02] VITALS: BP 160/99
[2016-12-13 20:57] VITALS: BP 151/93
== END 2016-12-13 21:15 | DRG 871 ==
LOC: EMS 18:33 → 5S 21:47
PROVIDERS: ADMIT Internal Medicine; ATTEND Internal Medicine
PROC: 5A09457 Assistance with Respiratory Ventilation, 24-96 Consecutive Hours, Continuous Positive Airway Pressure (ICD-10-PCS; principal; 2016-12-08)
DX: A41.9 Sepsis, unspecified organism (principal); G92 Toxic encephalopathy; J69.0 Pneumonitis due to inhalation of food and vomit; J96.21 Acute and chronic respiratory failure with hypoxia; J96.22 Acute and chronic respiratory failure with hypercapnia; I50.23 Acute on chronic systolic (congestive) heart failure; E44.0 Moderate protein-calorie malnutrition; E87.2 Acidosis; I13.0 Hypertensive heart and chronic kidney disease with heart failure and stage 1 through stage 4 chronic kidney disease, or unspecified chronic kidney disease; I48.92 Unspecified atrial flutter; J44.1 Chronic obstructive pulmonary disease with (acute) exacerbation; E11.22 Type 2 diabetes mellitus with diabetic chronic kidney disease; E66.01 Morbid (severe) obesity due to excess calories; M19.90 Unspecified osteoarthritis, unspecified site; F32.9 Major depressive disorder, single episode, unspecified; E78.00 Pure hypercholesterolemia, unspecified; F99 Mental disorder, not otherwise specified; E78.5 Hyperlipidemia, unspecified; F20.9 Schizophrenia, unspecified; F31.9 Bipolar disorder, unspecified; I25.10 Atherosclerotic heart disease of native coronary artery without angina pectoris; N18.9 Chronic kidney disease, unspecified; R62.7 Adult failure to thrive; Z86.73 Personal history of transient ischemic attack (TIA), and cerebral infarction without residual deficits; Z87.891 Personal history of nicotine dependence; Z99.81 Dependence on supplemental oxygen; Z68.33 Body mass index [BMI] 33.0-33.9, adult; Z79.2 Long term (current) use of antibiotics; Z79.01 Long term (current) use of anticoagulants; Z79.51 Long term (current) use of inhaled steroids; Z79.899 Other long term (current) drug therapy; I25.2 Old myocardial infarction; Z90.710 Acquired absence of both cervix and uterus; Z90.49 Acquired absence of other specified parts of digestive tract; Z79.84 Long term (current) use of oral hypoglycemic drugs; Z22.322 Carrier or suspected carrier of Methicillin resistant Staphylococcus aureus; Z28.21 Immunization not carried out because of patient refusal
CPT/HCPCS: 51702; 82805; 82962; 83605; 84132; 84145; 87040; 87081; 87804; 93005; 93306; 94640; 94660; 96360; 96365; 97163; 99291; J0696; J1630; J1644; J1650; J1940; J2543; J2920; J2930; J3370; J3480; J7050; J7060

== ENCOUNTER 2017-03-17 16:42 | Emergency (ER) | payer MEDICARE, OTHER ==
[~2017-03-17] VITALS: Ht 162.6 cm; Wt 83.6 kg
[~2017-03-17 16:42] MED LIST changes: +ACET-2247 PO; -ATOR20TA65 PO; +AUD NEB; -CARV12 PO; +DSS100 PO; +ENOX40DI9 SQ; +FURO40I IV; +HALO5I IVP; -HALO5TAB PO; -IPRA4AER IH; +IPRNEB IH; +MOM30 PO; -MONT10TA21 PO; +MUPI15CR12 NASAL; -OMEP20 PO; +OXYC-522 PO; +PANT40TA25 PO; +PIPE3.377 IV; +SM40I IVP; +VANC1FRO IVPB
[2017-03-17] MEDS ORDERED: FURO40 PO (16:56)
[2017-03-17] MEDS ORDERED: DIPH25CA48 PO (16:56)
[2017-03-17] MEDS ORDERED: HYDROCODONE/ACETAMINOPHEN 5-325 MG TABLET PO ONE (17:45)
[2017-03-17 21:00] VITALS: BP 138/85
== END 2017-03-17 21:37 | disposition left against medical advice (07) ==
LOC: EMS 16:49
DX: M25.511 Pain in right shoulder (principal); I11.0 Hypertensive heart disease with heart failure; I50.9 Heart failure, unspecified; I25.2 Old myocardial infarction; I25.10 Atherosclerotic heart disease of native coronary artery without angina pectoris; E11.29 Type 2 diabetes mellitus with other diabetic kidney complication; N28.9 Disorder of kidney and ureter, unspecified; J44.9 Chronic obstructive pulmonary disease, unspecified; J45.909 Unspecified asthma, uncomplicated; F17.210 Nicotine dependence, cigarettes, uncomplicated
CPT/HCPCS: 73200; 99284

== ENCOUNTER 2017-05-08 09:39 | Inpatient (IN) | payer MEDICARE, OTHER ==
[~2017-05-08] VITALS: Ht 162.6 cm; Wt 105.8 kg
[~2017-05-08 09:39] MED LIST changes: -ASPI-1093 PO; +ASPI-1182 PO; +DIPH25CA48 PO; -ENOX40DI9 SQ; +FURO40 PO; -FURO40I IV; -HALO5I IVP; -MOM30 PO; -MUPI15CR12 NASAL; -OXYC-522 PO; -PIPE3.377 IV; -SM40I IVP; -VANC1FRO IVPB
[2017-05-08 10:02] LABS: GLUCOSE,POINT OF CARE 75 MG/DL (70-110)
[2017-05-08] MEDS ORDERED: MethylPREDNISolone SOD SUCC 125 MG/2 ML VIAL IVP ONE (10:15)
[2017-05-08] MEDS ORDERED: ALBUTEROL SULFATE 5 MG/ML 20 ML NEB SOLN [BULK] NEB ONE ×2 (10:15→13:15)
[2017-05-08] MEDS ORDERED: IPRATROPIUM BROMIDE 0.5 MG/2.5 ML NEB SOLUTION NEB ONE ×2 (10:15→13:15)
[2017-05-08 10:44] LABS: EOSINOPHILS % (AUTO) 0.2 % (1.0-6.0); HEMATOCRIT 35.3 % (36-46); HEMOGLOBIN 11.3 g/dL (12.0-16.0); LYMPHOCYTES # (AUTO) 1.1 K/uL (1.0-4.8); LYMPHOCYTES % (AUTO) 7.4 % (22.0-44.0); MEAN CORPUSCULAR HEMOGLOBIN 26.2 pg (26.0-34.0); MEAN CORPUSCULAR VOLUME 82 fL (80-100); MONOCYTES # (AUTO) 1.4 K/uL (0.1-1.0); MONOCYTES % (AUTO) 9.3 % (2.0-9.0); NEUTROPHILS # (AUTO) 12.9 K/uL (1.8-7.7); NEUTROPHILS % (AUTO) 83.1 % (40.0-70.0); PLATELET COUNT (AUTO) 309 K/uL (150-450); RED BLOOD CELL COUNT(AUTO) 4.32 MIL/uL (4.00-5.20); RED CELL DISTRIBUTION WIDTH 17.9 % (11.5-14.5); WHITE BLOOD COUNT (AUTO) 15.5 K/uL (4.5-11.0)
[2017-05-08 10:59] LABS: CALCIUM, TOTAL 8.7 mg/dL (8.8-10.5); CREATININE 3.08 mg/dL (0.60-1.30); POTASSIUM 4.3 mmol/L (3.5-5.1)
[2017-05-08] MEDS ORDERED: 0.9% SODIUM CHLORIDE 5 ML NEB SOLUTION NEB ONE (10:59)
[2017-05-08 11:07] LABS: APPEARANCE,URINE CLOUDY (CLEAR); GLUCOSE, URINE (UA) NEGATIVE (NEGATIVE); KETONES,URINE TRACE mg/dL (NEGATIVE); LEUKOCYTE ESTERASE ,URINE TRACE (NEGATIVE); OCCULT BLOOD,URINE NEGATIVE (NEGATIVE); PH,URINE 5.5 (5.0-8.0); PROTEIN,URINE SEE CONFIRM (NEGATIVE)
[2017-05-08 11:08] LABS: RBC MORPHOLOGY COMMENT ABNORMAL RBC MORPH
[2017-05-08 11:20] LABS: ADD UA MICROSCOPIC YES
[2017-05-08 11:21] LABS: SULFOSALICYLIC ACID,URINE 2+ (Negative)
[2017-05-08 11:22] LABS: AMORPHOUS SEDIMENT,UR Moderate /LPF (None Seen); FINE GRANULAR CASTS,URINE 0-2 /LPF (None Seen); RBC,URINE 0-2 /HPF (0-2); SQUAMOUS EPITHELIAL CELL,UR Moderate /LPF (None Seen); WBC,URINE 0-2 /HPF (0-5)
[2017-05-08 11:24] LABS: ALBUMIN 3.8 g/dL (3.4-5.0); BILIRUBIN,TOTAL 3.4 mg/dL (0.1-1.0); CREATINE KINASE MB 11.9 ng/mL (0-5); TOTAL PROTEIN, SERUM 7.1 g/dL (6.4-8.2)
[2017-05-08] MEDS ORDERED: SODIUM CHLORIDE 0.9% 500 ML IV ONE (11:45)
[2017-05-08] MEDS ORDERED: HydrALAZINE HCL 20 MG/ML VIAL IVP ONE (13:00)
[2017-05-08] MEDS ORDERED: 0.9% SODIUM CHLORIDE 15 ML NEB SOLUTION NEB ONE (13:14)
[2017-05-08 13:23] LABS: GLUCOSE,POINT OF CARE 92 MG/DL (70-110)
[2017-05-08] MEDS ORDERED: ACETAMINOPHEN 325 MG TABLET PO PRN ×2 (13:45→14:30)
[2017-05-08] MEDS ORDERED: ONDANSETRON HCL 4 MG/2 ML VIAL IVP PRN ×2 (13:45→14:30)
[2017-05-08 14:22] VITALS: BP 175/110
[2017-05-08] MEDS ORDERED: BISACODYL 10 MG RECTAL RECTAL SUPPOSITORY PR PRN (14:30)
[2017-05-08] MEDS: ALBUTEROL SULFATE 2.5 MG/0.5 ML NEB SOLUTION NEB SCH ×3 (15:43→23:10)
[2017-05-08] MEDS: IPRATROPIUM BROMIDE 0.5 MG/2.5 ML NEB SOLUTION NEB SCH ×3 (15:44→23:10)
[2017-05-08] MEDS ORDERED: SODIUM CHLORIDE 0.9% 250 ML IV ONE (17:38)
[2017-05-08] MEDS: AZITHROMYCIN 500 MG/NS 250 ML IV SCH (17:39)
[2017-05-08] MEDS: MethylPREDNISolone SOD SUCC 125 MG/2 ML VIAL IVP SCH ×2 (18:24→23:28)
[2017-05-08 19:17] VITALS: BP 140/78
[2017-05-08] MEDS ORDERED: INFLUENZA VIRUS VACCINE QVS 2017-18 (3YR+)/PF 60 MCG/0.5 ML SYRINGE IM ONE (21:00)
[2017-05-08] MEDS ORDERED: PNEUMOCOCCAL VACCINE POLYVALENT 0.5 ML VIAL [PPSV23] IM ONE (21:00)
[2017-05-08] MEDS: DOCUSATE SODIUM 100 MG CAPSULE PO SCH (21:04)
[2017-05-08] MEDS: FUROSEMIDE 40 MG TABLET PO SCH (21:04)
[2017-05-08] MEDS: HEPARIN SODIUM,PORCINE 5,000 UNITS/ML VIAL SQ SCH (21:04)
[2017-05-08] MEDS: QUEtiapine FUMARATE 25 MG TABLET PO SCH (21:04)
[2017-05-08] MEDS: AmLODIPine BESYLATE 5 MG TABLET PO SCH (21:04)
[2017-05-08] MEDS: AMIODARONE HCL 200 MG TABLET PO SCH (21:22)
[2017-05-08] MEDS: OxyCODONE HCL/ACETAMINOPHEN 5-325 MG TABLET PO PRN (21:23)
[2017-05-08 23:32] VITALS: BP 129/79
[2017-05-09] MEDS: IPRATROPIUM BROMIDE 0.5 MG/2.5 ML NEB SOLUTION NEB SCH ×2 (03:15→07:00)
[2017-05-09] MEDS: ALBUTEROL SULFATE 2.5 MG/0.5 ML NEB SOLUTION NEB SCH ×2 (03:15→07:00)
[2017-05-09 04:21] VITALS: BP 153/76
[2017-05-09] MEDS: OxyCODONE HCL/ACETAMINOPHEN 5-325 MG TABLET PO PRN (06:21)
[2017-05-09] MEDS: MethylPREDNISolone SOD SUCC 125 MG/2 ML VIAL IVP SCH ×3 (06:22→18:10)
[2017-05-09 07:22] VITALS: BP 146/88
[2017-05-09] MEDS: ASPIRIN 81 MG CHEWABLE TABLET PO SCH (08:26)
[2017-05-09] MEDS: FUROSEMIDE 40 MG TABLET PO SCH (08:26)
[2017-05-09] MEDS: DOCUSATE SODIUM 100 MG CAPSULE PO SCH ×2 (08:26→20:46)
[2017-05-09] MEDS: QUEtiapine FUMARATE 25 MG TABLET PO SCH ×2 (08:26→20:46)
[2017-05-09] MEDS: PANTOPRAZOLE SODIUM 40 MG DR TABLET PO SCH (08:26)
[2017-05-09] MEDS: HEPARIN SODIUM,PORCINE 5,000 UNITS/ML VIAL SQ SCH ×2 (08:27→20:47)
[2017-05-09] MEDS: AMIODARONE HCL 200 MG TABLET PO SCH ×2 (08:27→20:46)
[2017-05-09] MEDS: AmLODIPine BESYLATE 5 MG TABLET PO SCH ×2 (08:27→20:46)
[2017-05-09 11:23] VITALS: BP 150/92
[2017-05-09] MEDS: BUMETANIDE 0.25 MG/ML 4 ML VIAL IVP SCH ×2 (12:07→20:46)
[2017-05-09] MEDS: AZITHROMYCIN 500 MG/NS 250 ML IV SCH (14:18)
[2017-05-09 15:30] VITALS: BP 159/80
[2017-05-09 19:52] VITALS: BP 144/92
[2017-05-09 23:43] VITALS: BP 139/53
[2017-05-10] MEDS: MethylPREDNISolone SOD SUCC 125 MG/2 ML VIAL IVP SCH ×5 (00:26→23:14)
[2017-05-10 04:33] VITALS: BP 153/92
[2017-05-10 07:00] LABS: CREATINE KINASE MB 2.1 ng/mL (0-5); CREATINE KINASE, TOTAL 298 U/L (26-192)
[2017-05-10 07:01] VITALS: BP 150/96
[2017-05-10] MEDS: BUMETANIDE 0.25 MG/ML 4 ML VIAL IVP SCH ×2 (08:06→20:08)
[2017-05-10] MEDS: HEPARIN SODIUM,PORCINE 5,000 UNITS/ML VIAL SQ SCH ×2 (08:06→20:08)
[2017-05-10] MEDS: ASPIRIN 81 MG CHEWABLE TABLET PO SCH (08:07)
[2017-05-10] MEDS: DOCUSATE SODIUM 100 MG CAPSULE PO SCH ×2 (08:07→20:08)
[2017-05-10] MEDS: AmLODIPine BESYLATE 5 MG TABLET PO SCH ×2 (08:07→20:08)
[2017-05-10] MEDS: AMIODARONE HCL 200 MG TABLET PO SCH ×2 (08:07→20:08)
[2017-05-10] MEDS: QUEtiapine FUMARATE 25 MG TABLET PO SCH ×2 (08:07→20:07)
[2017-05-10] MEDS: PANTOPRAZOLE SODIUM 40 MG DR TABLET PO SCH (08:07)
[2017-05-10 10:57] VITALS: BP 157/96
[2017-05-10 11:08] LABS: ALBUMIN (IFE & ELECTROPHOR) 3.7 g/dL (2.9-4.4); ALBUMIN/GLOBULIN RATIO (IFE) 1.3 (0.7-1.7); ALPHA-2 (IFE & PEP) 0.5 g/dL (0.4-1.0); IGG (IMMUNOFIXATION) 1215 mg/dL (700-1600); M-SPIKE (IEP) Not Observed g/dL (Not Observed); TOTAL PROTEIN 6.7 g/dL (6.0-8.5)
[2017-05-10 13:11] LABS: ALPHA-1 URINE (ELP) 0.7 %; GAMMA URINE(ELP) 19.4 %
[2017-05-10] MEDS: AZITHROMYCIN 500 MG/NS 250 ML IV SCH (14:54)
[2017-05-10 14:55] LABS: ANION GAP 14 mmol/L (8-16); CALCIUM, TOTAL 8.8 mg/dL (8.8-10.5); CARBON DIOXIDE 22 mmol/L (22-29); CHLORIDE 100 mmol/L (98-107); CREATININE 3.54 mg/dL (0.60-1.30); GLOMERULAR FILTR. RATE CALC 15 mL/min (>60); POTASSIUM 4.4 mmol/L (3.5-5.1); SODIUM SERUM 136 mmol/L (136-145); UREA NITROGEN, BLOOD 82 mg/dL (7-18)
[2017-05-10 15:23] VITALS: BP 156/105
[2017-05-10 19:43] VITALS: BP 157/93
[2017-05-10] MEDS: ALBUTEROL SULFATE 2.5 MG/0.5 ML NEB SOLUTION NEB PRN (20:05)
[2017-05-10] MEDS: IPRATROPIUM BROMIDE 0.5 MG/2.5 ML NEB SOLUTION NEB PRN (20:05)
[2017-05-10] MEDS: OxyCODONE HCL/ACETAMINOPHEN 5-325 MG TABLET PO PRN (20:07)
[2017-05-10 23:53] VITALS: BP 145/93
[2017-05-11 04:22] VITALS: BP 153/89
[2017-05-11] MEDS: MethylPREDNISolone SOD SUCC 125 MG/2 ML VIAL IVP SCH ×3 (05:37→17:57)
[2017-05-11 07:10] LABS: CREATININE 3.31 mg/dL (0.60-1.30); POTASSIUM 3.8 mmol/L (3.5-5.1)
[2017-05-11 08:00] VITALS: BP 148/86
[2017-05-11 08:13] LABS: HEPATITIS Bs ANTIGEN SCREEN P Negative (Negative); HEPATITIS C AB SCREEN <0.1 s/co ratio (0.0-0.9)
[2017-05-11] MEDS: BUMETANIDE 0.25 MG/ML 4 ML VIAL IVP SCH ×2 (08:31→20:47)
[2017-05-11] MEDS: QUEtiapine FUMARATE 25 MG TABLET PO SCH ×2 (08:31→20:47)
[2017-05-11] MEDS: HEPARIN SODIUM,PORCINE 5,000 UNITS/ML VIAL SQ SCH ×2 (08:31→20:47)
[2017-05-11] MEDS: DOCUSATE SODIUM 100 MG CAPSULE PO SCH ×2 (08:32→20:47)
[2017-05-11] MEDS: AMIODARONE HCL 200 MG TABLET PO SCH ×2 (08:32→20:47)
[2017-05-11] MEDS: AmLODIPine BESYLATE 5 MG TABLET PO SCH ×2 (08:32→20:47)
[2017-05-11] MEDS: PANTOPRAZOLE SODIUM 40 MG DR TABLET PO SCH (08:32)
[2017-05-11] MEDS: ASPIRIN 81 MG CHEWABLE TABLET PO SCH (08:32)
[2017-05-11 10:55] VITALS: BP 154/83
[2017-05-11] MEDS: ALBUTEROL SULFATE 2.5 MG/0.5 ML NEB SOLUTION NEB PRN (12:40)
[2017-05-11] MEDS: IPRATROPIUM BROMIDE 0.5 MG/2.5 ML NEB SOLUTION NEB PRN (12:40)
[2017-05-11] MEDS ORDERED: HydrALAZINE HCL 25 MG TABLET PO ONE (13:45)
[2017-05-11 13:50] LABS: EOSINOPHILS % (AUTO) 0.1 % (1.0-6.0); HEMOGLOBIN 10.7 g/dL (12.0-16.0); LYMPHOCYTES # (AUTO) 0.9 K/uL (1.0-4.8); LYMPHOCYTES % (AUTO) 6.3 % (22.0-44.0); MEAN CORPUSCULAR HGB CONC 32.3 G/dL (31.0-37.0); MEAN CORPUSCULAR VOLUME 80 fL (80-100); MONOCYTES # (AUTO) 0.4 K/uL (0.1-1.0); MONOCYTES % (AUTO) 3.2 % (2.0-9.0); NEUTROPHILS # (AUTO) 12.4 K/uL (1.8-7.7); PLATELET COUNT (AUTO) 189 K/uL (150-450); RED CELL DISTRIBUTION WIDTH 18.1 % (11.5-14.5); WHITE BLOOD COUNT (AUTO) 13.7 K/uL (4.5-11.0)
[2017-05-11 13:51] LABS: NEUTROPHILS % (AUTO) 90.4 % (40.0-70.0)
[2017-05-11] MEDS ORDERED: SODIUM CHLORIDE 0.9% 100 ML ONE (14:00)
[2017-05-11] MEDS: AZITHROMYCIN 500 MG/NS 250 ML IV SCH (14:02)
[2017-05-11 14:13] LABS: RBC MORPHOLOGY COMMENT ABNORMAL RBC MORPH
[2017-05-11 16:03] VITALS: BP 155/76
[2017-05-11 20:15] VITALS: BP 153/86
[2017-05-11 21:39] VITALS: BP 150/86
[2017-05-11] MEDS: HydrALAZINE HCL 25 MG TABLET PO SCH (21:42)
[2017-05-11] MEDS: LACTULOSE 20 GM/30 ML SOLUTION UDCUP PO PRN (22:33)
[2017-05-12] VITALS (7 sets, daily range): BP systolic 142–158; BP diastolic 83–94
[2017-05-12] MEDS: MethylPREDNISolone SOD SUCC 125 MG/2 ML VIAL IVP SCH ×5 (00:19→23:33)
[2017-05-12] MEDS: LACTULOSE 20 GM/30 ML SOLUTION UDCUP PO PRN ×2 (07:30→20:38)
[2017-05-12] MEDS: DOCUSATE SODIUM 100 MG CAPSULE PO SCH ×2 (07:31→20:37)
[2017-05-12] MEDS: ASPIRIN 81 MG CHEWABLE TABLET PO SCH (07:31)
[2017-05-12] MEDS: HEPARIN SODIUM,PORCINE 5,000 UNITS/ML VIAL SQ SCH ×2 (07:31→20:36)
[2017-05-12] MEDS: BUMETANIDE 0.25 MG/ML 4 ML VIAL IVP SCH ×2 (07:31→20:37)
[2017-05-12] MEDS: AMIODARONE HCL 200 MG TABLET PO SCH ×2 (07:31→20:37)
[2017-05-12] MEDS: QUEtiapine FUMARATE 25 MG TABLET PO SCH ×2 (07:31→20:37)
[2017-05-12] MEDS: PANTOPRAZOLE SODIUM 40 MG DR TABLET PO SCH (07:31)
[2017-05-12] MEDS: AmLODIPine BESYLATE 5 MG TABLET PO SCH ×2 (07:31→20:37)
[2017-05-12] MEDS: HydrALAZINE HCL 25 MG TABLET PO SCH ×4 (07:31→20:37)
[2017-05-12 07:54] LABS: EOSINOPHILS % (AUTO) 0.1 % (1.0-6.0); HEMATOCRIT 33.5 % (36-46); HEMOGLOBIN 10.9 g/dL (12.0-16.0); LYMPHOCYTES # (AUTO) 0.2 K/uL (1.0-4.8); LYMPHOCYTES % (AUTO) 1.3 % (22.0-44.0); MEAN CORPUSCULAR HEMOGLOBIN 25.8 pg (26.0-34.0); MEAN CORPUSCULAR HGB CONC 32.5 G/dL (31.0-37.0); MEAN CORPUSCULAR VOLUME 79 fL (80-100); MONOCYTES # (AUTO) 0.3 K/uL (0.1-1.0); MONOCYTES % (AUTO) 2.6 % (2.0-9.0); NEUTROPHILS # (AUTO) 12.8 K/uL (1.8-7.7); PLATELET COUNT (AUTO) 163 K/uL (150-450); RED BLOOD CELL COUNT(AUTO) 4.22 MIL/uL (4.00-5.20); RED CELL DISTRIBUTION WIDTH 18.1 % (11.5-14.5); WHITE BLOOD COUNT (AUTO) 13.4 K/uL (4.5-11.0)
[2017-05-12 08:12] LABS: ALBUMIN 3.8 g/dL (3.4-5.0); BILIRUBIN,TOTAL 1.7 mg/dL (0.1-1.0); CALCIUM, TOTAL 8.9 mg/dL (8.8-10.5); CREATININE 3.3 mg/dL (0.60-1.30); POTASSIUM 3.7 mmol/L (3.5-5.1); TOTAL PROTEIN, SERUM 7.1 g/dL (6.4-8.2)
[2017-05-12] MEDS: AZITHROMYCIN 500 MG/NS 250 ML IV SCH (14:40)
[2017-05-13] MEDS: OxyCODONE HCL/ACETAMINOPHEN 5-325 MG TABLET PO PRN ×2 (00:19→09:41)
[2017-05-13] MEDS: IPRATROPIUM BROMIDE 0.5 MG/2.5 ML NEB SOLUTION NEB PRN (01:42)
[2017-05-13] MEDS: ALBUTEROL SULFATE 2.5 MG/0.5 ML NEB SOLUTION NEB PRN (01:42)
[2017-05-13 04:14] VITALS: BP 155/87
[2017-05-13] MEDS: MethylPREDNISolone SOD SUCC 125 MG/2 ML VIAL IVP SCH ×3 (06:27→18:19)
[2017-05-13 06:59] LABS: BILIRUBIN,TOTAL 1.6 mg/dL (0.1-1.0); CALCIUM, TOTAL 8.9 mg/dL (8.8-10.5); CREATININE 3.31 mg/dL (0.60-1.30); POTASSIUM 3.2 mmol/L (3.5-5.1); TOTAL PROTEIN, SERUM 7.1 g/dL (6.4-8.2)
[2017-05-13 07:05] LABS: HEMATOCRIT 34.1 % (36-46); MEAN CORPUSCULAR HEMOGLOBIN 25.9 pg (26.0-34.0); MEAN CORPUSCULAR HGB CONC 32.4 G/dL (31.0-37.0); MEAN CORPUSCULAR VOLUME 80 fL (80-100); PLATELET COUNT (AUTO) 168 K/uL (150-450); RED BLOOD CELL COUNT(AUTO) 4.26 MIL/uL (4.00-5.20); RED CELL DISTRIBUTION WIDTH 18.3 % (11.5-14.5); WHITE BLOOD COUNT (AUTO) 13.7 K/uL (4.5-11.0)
[2017-05-13] MEDS ORDERED: MEBROFENIN TC99M/MCL ISOTOPE 1 EA INJ INJ ONE (07:50)
[2017-05-13 08:00] VITALS: BP 153/96
[2017-05-13] MEDS ORDERED: POTASSIUM CHLORIDE 20 MEQ ER TABLET PO ONE (09:30)
[2017-05-13] MEDS: MULTIVITAMINS WITH MINERALS, THERAPEUTIC TABLET PO SCH (09:41)
[2017-05-13] MEDS: HydrALAZINE HCL 25 MG TABLET PO SCH ×3 (09:41→20:14)
[2017-05-13] MEDS: ASPIRIN 81 MG CHEWABLE TABLET PO SCH (09:42)
[2017-05-13] MEDS: HEPARIN SODIUM,PORCINE 5,000 UNITS/ML VIAL SQ SCH ×2 (09:42→20:15)
[2017-05-13] MEDS: DOCUSATE SODIUM 100 MG CAPSULE PO SCH ×2 (09:42→20:14)
[2017-05-13] MEDS: AMIODARONE HCL 200 MG TABLET PO SCH ×2 (09:42→20:14)
[2017-05-13] MEDS: PANTOPRAZOLE SODIUM 40 MG DR TABLET PO SCH (09:42)
[2017-05-13] MEDS: QUEtiapine FUMARATE 25 MG TABLET PO SCH ×2 (09:42→20:14)
[2017-05-13 09:53] LABS: BAND NEUTROPHILS % (MANUAL) 12 % (1-5); LYMPHOCYTES % (MANUAL) 5 % (22-44); RBC MORPHOLOGY COMMENT ABNORMAL RBC MORPH; TOTAL CELLS COUNTED 100
[2017-05-13] MEDS: AmLODIPine BESYLATE 5 MG TABLET PO SCH ×2 (11:02→20:14)
[2017-05-13] MEDS: BUMETANIDE 1 MG TABLET PO SCH ×2 (11:02→20:14)
[2017-05-13 11:32] VITALS: BP 148/98
[2017-05-13] MEDS: AZITHROMYCIN 500 MG/NS 250 ML IV SCH (14:52)
[2017-05-13 16:24] VITALS: BP 153/101
[2017-05-13 19:56] VITALS: BP 156/90
[2017-05-13] MEDS: NYSTATIN 15 GM POWDER BOTTLE TP SCH (20:14)
[2017-05-13] MEDS ORDERED: BUMETANIDE 1 MG TABLET PO SCH (21:00)
[2017-05-14] VITALS (8 sets, daily range): BP systolic 151–177; BP diastolic 88–102
[2017-05-14] MEDS: MethylPREDNISolone SOD SUCC 125 MG/2 ML VIAL IVP SCH ×4 (00:11→18:08)
[2017-05-14] MEDS: HydrALAZINE HCL 25 MG TABLET PO SCH (05:16)
[2017-05-14 07:06] LABS: HEMATOCRIT 35.7 % (36-46); HEMOGLOBIN 11.7 g/dL (12.0-16.0); MEAN CORPUSCULAR HEMOGLOBIN 26.1 pg (26.0-34.0); MEAN CORPUSCULAR HGB CONC 32.8 G/dL (31.0-37.0); MEAN CORPUSCULAR VOLUME 80 fL (80-100); PLATELET COUNT (AUTO) 189 K/uL (150-450); RED BLOOD CELL COUNT(AUTO) 4.47 MIL/uL (4.00-5.20); RED CELL DISTRIBUTION WIDTH 18.1 % (11.5-14.5); WHITE BLOOD COUNT (AUTO) 15.1 K/uL (4.5-11.0)
[2017-05-14 07:33] LABS: ALBUMIN 4.1 g/dL (3.4-5.0); BILIRUBIN,TOTAL 1.6 mg/dL (0.1-1.0); CREATININE 2.97 mg/dL (0.60-1.30); POTASSIUM 3.6 mmol/L (3.5-5.1); TOTAL PROTEIN, SERUM 7.3 g/dL (6.4-8.2)
[2017-05-14] MEDS: QUEtiapine FUMARATE 25 MG TABLET PO SCH ×2 (08:14→20:10)
[2017-05-14] MEDS: AMIODARONE HCL 200 MG TABLET PO SCH ×2 (08:14→20:10)
[2017-05-14] MEDS: PANTOPRAZOLE SODIUM 40 MG DR TABLET PO SCH (08:14)
[2017-05-14] MEDS: MULTIVITAMINS WITH MINERALS, THERAPEUTIC TABLET PO SCH (08:14)
[2017-05-14] MEDS: NYSTATIN 15 GM POWDER BOTTLE TP SCH (08:14)
[2017-05-14] MEDS: BUMETANIDE 1 MG TABLET PO SCH ×2 (08:14→20:11)
[2017-05-14] MEDS: DOCUSATE SODIUM 100 MG CAPSULE PO SCH ×2 (08:14→20:11)
[2017-05-14] MEDS: ASPIRIN 81 MG CHEWABLE TABLET PO SCH (08:14)
[2017-05-14] MEDS: AmLODIPine BESYLATE 5 MG TABLET PO SCH ×2 (08:14→20:11)
[2017-05-14] MEDS: HEPARIN SODIUM,PORCINE 5,000 UNITS/ML VIAL SQ SCH ×2 (08:15→20:24)
[2017-05-14 09:33] LABS: LYMPHOCYTES % (MANUAL) 2 % (22-44); TOTAL CELLS COUNTED 100
[2017-05-14 09:35] LABS: RBC MORPHOLOGY COMMENT ABNORMAL R
[2017-05-14] MEDS ORDERED: SODIUM CHLORIDE 0.9% 50 ML ONE (14:40)
[2017-05-14] MEDS: AZITHROMYCIN 500 MG/NS 250 ML IV SCH (14:45)
[2017-05-14] MEDS: HydrALAZINE HCL 50 MG TABLET PO SCH ×2 (16:28→20:11)
[2017-05-15] MEDS: MethylPREDNISolone SOD SUCC 125 MG/2 ML VIAL IVP SCH ×5 (00:25→23:54)
[2017-05-15 04:29] VITALS: BP 156/92
[2017-05-15 06:09] LABS: HEMATOCRIT 34.6 % (36-46); HEMOGLOBIN 11.3 g/dL (12.0-16.0); MEAN CORPUSCULAR HEMOGLOBIN 25.8 pg (26.0-34.0); MEAN CORPUSCULAR HGB CONC 32.6 G/dL (31.0-37.0); MEAN CORPUSCULAR VOLUME 79 fL (80-100); PLATELET COUNT (AUTO) 179 K/uL (150-450); RED BLOOD CELL COUNT(AUTO) 4.37 MIL/uL (4.00-5.20); RED CELL DISTRIBUTION WIDTH 18.4 % (11.5-14.5); WHITE BLOOD COUNT (AUTO) 16.6 K/uL (4.5-11.0)
[2017-05-15] MEDS: PIPERACILLIN SODIUM/TAZOBACTAM 2.25 GM in DEXTROSE 5%-WATER 50 ML IV SCH ×4 (06:35→23:53)
[2017-05-15 06:36] LABS: BILIRUBIN,TOTAL 1.4 mg/dL (0.1-1.0); CREATININE 2.94 mg/dL (0.60-1.30); POTASSIUM 3.3 mmol/L (3.5-5.1); TOTAL PROTEIN, SERUM 7.1 g/dL (6.4-8.2)
[2017-05-15 07:08] VITALS: BP 168/88
[2017-05-15] MEDS: PANTOPRAZOLE SODIUM 40 MG DR TABLET PO SCH (08:18)
[2017-05-15] MEDS: HEPARIN SODIUM,PORCINE 5,000 UNITS/ML VIAL SQ SCH ×2 (08:18→15:32)
[2017-05-15] MEDS: ASPIRIN 81 MG CHEWABLE TABLET PO SCH (08:18)
[2017-05-15] MEDS: DOCUSATE SODIUM 100 MG CAPSULE PO SCH ×2 (08:18→20:04)
[2017-05-15] MEDS: BUMETANIDE 1 MG TABLET PO SCH ×2 (08:18→20:04)
[2017-05-15] MEDS: AMIODARONE HCL 200 MG TABLET PO SCH ×2 (08:19→20:04)
[2017-05-15] MEDS: NYSTATIN 15 GM POWDER BOTTLE TP SCH (08:19)
[2017-05-15] MEDS: QUEtiapine FUMARATE 25 MG TABLET PO SCH ×2 (08:19→20:04)
[2017-05-15] MEDS: AmLODIPine BESYLATE 5 MG TABLET PO SCH ×2 (08:19→20:04)
[2017-05-15] MEDS: MULTIVITAMINS WITH MINERALS, THERAPEUTIC TABLET PO SCH (08:19)
[2017-05-15 09:27] LABS: BAND NEUTROPHILS % (MANUAL) 2 % (1-5); LYMPHOCYTES % (MANUAL) 4 % (22-44); RBC MORPHOLOGY COMMENT ABNORMAL R; TOTAL CELLS COUNTED 100
[2017-05-15 11:04] VITALS: BP 173/92
[2017-05-15] MEDS: HydrALAZINE HCL 50 MG TABLET PO SCH ×3 (11:08→20:04)
[2017-05-15] MEDS ORDERED: POTASSIUM CHLORIDE 10% 40 MEQ/30 ML LIQUID UDCUP PO ONE (12:15)
[2017-05-15] MEDS: OxyCODONE HCL/ACETAMINOPHEN 5-325 MG TABLET PO PRN (13:01)
[2017-05-15] MEDS: ALBUTEROL SULFATE 2.5 MG/0.5 ML NEB SOLUTION NEB PRN (13:37)
[2017-05-15] MEDS: IPRATROPIUM BROMIDE 0.5 MG/2.5 ML NEB SOLUTION NEB PRN (13:37)
[2017-05-15] MEDS ORDERED: POTASSIUM CHLORIDE 20 MEQ ER TABLET PO ONE (14:45)
[2017-05-15 15:20] VITALS: BP 169/84
[2017-05-15] MEDS: METOPROLOL TARTRATE 50 MG TABLET PO SCH ×2 (15:32→20:04)
[2017-05-15] MEDS: AZITHROMYCIN 500 MG/NS 250 ML IV SCH (15:32)
[2017-05-15] MEDS: METOLAZONE 2.5 MG TABLET PO SCH (16:54)
[2017-05-15 19:29] VITALS: BP 149/90
[2017-05-15 23:28] VITALS: BP 158/85
[2017-05-15] MEDS ORDERED: SODIUM CHLORIDE 0.9% 250 ML IV ONE (23:52)
[2017-05-16] VITALS (7 sets, daily range): BP systolic 130–155; BP diastolic 71–99
[2017-05-16] MEDS: PIPERACILLIN SODIUM/TAZOBACTAM 2.25 GM in DEXTROSE 5%-WATER 50 ML IV SCH ×3 (05:26→17:41)
[2017-05-16] MEDS: MethylPREDNISolone SOD SUCC 125 MG/2 ML VIAL IVP SCH ×3 (05:26→17:42)
[2017-05-16 06:52] LABS: HEMATOCRIT 34.7 % (36-46); HEMOGLOBIN 11.2 g/dL (12.0-16.0); MEAN CORPUSCULAR HEMOGLOBIN 25.7 pg (26.0-34.0); MEAN CORPUSCULAR HGB CONC 32.1 G/dL (31.0-37.0); MEAN CORPUSCULAR VOLUME 80 fL (80-100); PLATELET COUNT (AUTO) 172 K/uL (150-450); RED BLOOD CELL COUNT(AUTO) 4.34 MIL/uL (4.00-5.20); WHITE BLOOD COUNT (AUTO) 16.7 K/uL (4.5-11.0)
[2017-05-16 07:04] LABS: ALBUMIN 3.7 g/dL (3.4-5.0); BILIRUBIN,TOTAL 1.2 mg/dL (0.1-1.0); CALCIUM, TOTAL 8.8 mg/dL (8.8-10.5); CREATININE 2.89 mg/dL (0.60-1.30); POTASSIUM 3.5 mmol/L (3.5-5.1); TOTAL PROTEIN, SERUM 6.7 g/dL (6.4-8.2)
[2017-05-16] MEDS: HEPARIN SODIUM,PORCINE 5,000 UNITS/ML VIAL SQ SCH ×2 (07:43→21:32)
[2017-05-16] MEDS: MULTIVITAMINS WITH MINERALS, THERAPEUTIC TABLET PO SCH (07:44)
[2017-05-16] MEDS: METOPROLOL TARTRATE 50 MG TABLET PO SCH ×2 (07:44→21:03)
[2017-05-16] MEDS: BUMETANIDE 1 MG TABLET PO SCH ×2 (07:44→21:32)
[2017-05-16] MEDS: PANTOPRAZOLE SODIUM 40 MG DR TABLET PO SCH (07:44)
[2017-05-16] MEDS: AMIODARONE HCL 200 MG TABLET PO SCH ×2 (07:45→21:04)
[2017-05-16] MEDS: QUEtiapine FUMARATE 25 MG TABLET PO SCH ×2 (07:45→22:37)
[2017-05-16] MEDS: ASPIRIN 81 MG CHEWABLE TABLET PO SCH (07:45)
[2017-05-16] MEDS: OxyCODONE HCL/ACETAMINOPHEN 5-325 MG TABLET PO PRN (07:46)
[2017-05-16 07:51] LABS: BAND NEUTROPHILS % (MANUAL) 9 % (1-5); LYMPHOCYTES % (MANUAL) 8 % (22-44); TOTAL CELLS COUNTED 100
[2017-05-16 07:52] LABS: RBC MORPHOLOGY COMMENT ABNORMAL RBC MORPH
[2017-05-16] MEDS: DOCUSATE SODIUM 100 MG CAPSULE PO SCH ×2 (07:53→21:04)
[2017-05-16] MEDS: NYSTATIN 15 GM POWDER BOTTLE TP SCH (09:53)
[2017-05-16] MEDS: AmLODIPine BESYLATE 5 MG TABLET PO SCH ×2 (09:53→21:04)
[2017-05-16] MEDS: HydrALAZINE HCL 50 MG TABLET PO SCH ×3 (09:53→21:03)
[2017-05-16] MEDS: POTASSIUM CHLORIDE 20 MEQ ER TABLET PO SCH (12:07)
[2017-05-16] MEDS: AZITHROMYCIN 500 MG/NS 250 ML IV SCH (14:10)
[2017-05-17] MEDS: MethylPREDNISolone SOD SUCC 125 MG/2 ML VIAL IVP SCH ×5 (00:07→23:50)
[2017-05-17 04:51] VITALS: BP 140/76
[2017-05-17] MEDS: PIPERACILLIN SODIUM/TAZOBACTAM 2.25 GM in DEXTROSE 5%-WATER 50 ML IV SCH ×6 (05:46→23:52)
[2017-05-17 06:21] LABS: ALBUMIN 3.4 g/dL (3.4-5.0); BILIRUBIN,TOTAL 1.1 mg/dL (0.1-1.0); CALCIUM, TOTAL 8.5 mg/dL (8.8-10.5); CREATININE 2.94 mg/dL (0.60-1.30); POTASSIUM 3.4 mmol/L (3.5-5.1); TOTAL PROTEIN, SERUM 6.4 g/dL (6.4-8.2)
[2017-05-17 06:58] LABS: HEMOGLOBIN 11.2 g/dL (12.0-16.0); MEAN CORPUSCULAR HEMOGLOBIN 25.7 pg (26.0-34.0); MEAN CORPUSCULAR VOLUME 78 fL (80-100); PLATELET COUNT (AUTO) 182 K/uL (150-450); RED BLOOD CELL COUNT(AUTO) 4.36 MIL/uL (4.00-5.20); RED CELL DISTRIBUTION WIDTH 18.5 % (11.5-14.5); WHITE BLOOD COUNT (AUTO) 17.9 K/uL (4.5-11.0)
[2017-05-17 08:06] VITALS: BP 146/71
[2017-05-17] MEDS: BUMETANIDE 1 MG TABLET PO SCH ×2 (08:28→20:31)
[2017-05-17] MEDS: QUEtiapine FUMARATE 25 MG TABLET PO SCH ×2 (08:28→20:32)
[2017-05-17] MEDS: PANTOPRAZOLE SODIUM 40 MG DR TABLET PO SCH (08:29)
[2017-05-17] MEDS: HydrALAZINE HCL 50 MG TABLET PO SCH ×3 (08:29→20:30)
[2017-05-17] MEDS: AmLODIPine BESYLATE 5 MG TABLET PO SCH ×2 (08:29→20:30)
[2017-05-17] MEDS: METOLAZONE 2.5 MG TABLET PO SCH (08:29)
[2017-05-17] MEDS: DOCUSATE SODIUM 100 MG CAPSULE PO SCH ×2 (08:29→20:34)
[2017-05-17] MEDS: POTASSIUM CHLORIDE 20 MEQ ER TABLET PO SCH (08:29)
[2017-05-17] MEDS: MULTIVITAMINS WITH MINERALS, THERAPEUTIC TABLET PO SCH (08:29)
[2017-05-17] MEDS: AMIODARONE HCL 200 MG TABLET PO SCH ×2 (08:29→20:35)
[2017-05-17] MEDS: ASPIRIN 81 MG CHEWABLE TABLET PO SCH (08:30)
[2017-05-17] MEDS: METOPROLOL TARTRATE 50 MG TABLET PO SCH ×2 (08:30→20:30)
[2017-05-17] MEDS: HEPARIN SODIUM,PORCINE 5,000 UNITS/ML VIAL SQ SCH ×2 (08:30→20:32)
[2017-05-17] MEDS ORDERED: POTASSIUM CHLORIDE 20 MEQ ER TABLET PO ONE (09:30)
[2017-05-17 09:59] LABS: BAND NEUTROPHILS % (MANUAL) 3 % (1-5); LYMPHOCYTES % (MANUAL) 6 % (22-44); TOTAL CELLS COUNTED 100
[2017-05-17 10:00] LABS: RBC MORPHOLOGY COMMENT ABNORMAL R
[2017-05-17] MEDS: NYSTATIN 15 GM POWDER BOTTLE TP SCH (10:45)
[2017-05-17 11:52] VITALS: BP 124/71
[2017-05-17] MEDS: AZITHROMYCIN 500 MG/NS 250 ML IV SCH (15:16)
[2017-05-17 15:48] VITALS: BP 145/84
[2017-05-17 19:45] VITALS: BP 135/81
[2017-05-17] MEDS: OxyCODONE HCL/ACETAMINOPHEN 5-325 MG TABLET PO PRN (21:42)
[2017-05-17 23:50] VITALS: BP 130/79
[2017-05-18 04:25] VITALS: BP 136/76
[2017-05-18] MEDS: MethylPREDNISolone SOD SUCC 125 MG/2 ML VIAL IVP SCH (05:48)
[2017-05-18] MEDS: PIPERACILLIN SODIUM/TAZOBACTAM 2.25 GM in DEXTROSE 5%-WATER 50 ML IV SCH ×4 (05:48→23:43)
[2017-05-18 06:47] LABS: ALBUMIN 3.2 g/dL (3.4-5.0); CALCIUM, TOTAL 8.7 mg/dL (8.8-10.5); CREATININE 2.94 mg/dL (0.60-1.30); POTASSIUM 3.5 mmol/L (3.5-5.1); TOTAL PROTEIN, SERUM 6.4 g/dL (6.4-8.2)
[2017-05-18] MEDS ORDERED: SODIUM CHLORIDE 0.9% 250 ML IV ONE (07:12)
[2017-05-18 07:27] LABS: PLATELET COUNT (AUTO) 152 K/uL (150-450); WHITE BLOOD COUNT (AUTO) 21.3 K/uL (4.5-11.0)
[2017-05-18 07:36] LABS: HEMATOCRIT 36.4 % (36-46)
[2017-05-18 07:37] LABS: MEAN CORPUSCULAR HEMOGLOBIN 25.5 pg (26.0-34.0); MEAN CORPUSCULAR VOLUME 77 fL (80-100)
[2017-05-18 07:39] VITALS: BP 158/73
[2017-05-18] MEDS: MULTIVITAMINS WITH MINERALS, THERAPEUTIC TABLET PO SCH (08:29)
[2017-05-18] MEDS: PANTOPRAZOLE SODIUM 40 MG DR TABLET PO SCH (08:29)
[2017-05-18] MEDS: POTASSIUM CHLORIDE 20 MEQ ER TABLET PO SCH (08:29)
[2017-05-18] MEDS: QUEtiapine FUMARATE 25 MG TABLET PO SCH ×2 (08:29→20:08)
[2017-05-18] MEDS: BUMETANIDE 1 MG TABLET PO SCH ×2 (08:29→20:08)
[2017-05-18] MEDS: AmLODIPine BESYLATE 5 MG TABLET PO SCH ×2 (08:30→20:08)
[2017-05-18] MEDS: DOCUSATE SODIUM 100 MG CAPSULE PO SCH ×2 (08:30→20:08)
[2017-05-18] MEDS: ASPIRIN 81 MG CHEWABLE TABLET PO SCH (08:30)
[2017-05-18] MEDS: METOPROLOL TARTRATE 50 MG TABLET PO SCH ×2 (08:30→20:08)
[2017-05-18] MEDS: AMIODARONE HCL 200 MG TABLET PO SCH ×2 (08:30→20:08)
[2017-05-18] MEDS: HydrALAZINE HCL 50 MG TABLET PO SCH ×3 (08:30→20:08)
[2017-05-18] MEDS: HEPARIN SODIUM,PORCINE 5,000 UNITS/ML VIAL SQ SCH ×2 (08:30→20:08)
[2017-05-18] MEDS: NYSTATIN 15 GM POWDER BOTTLE TP SCH (08:31)
[2017-05-18 08:48] LABS: BAND NEUTROPHILS % (MANUAL) 2 % (1-5); LYMPHOCYTES % (MANUAL) 2 % (22-44); RBC MORPHOLOGY COMMENT ABNORMAL RBC MORPH; TOTAL CELLS COUNTED 100
[2017-05-18] MEDS: PredniSONE 20 MG TABLET PO SCH (09:10)
[2017-05-18 11:42] VITALS: BP 132/74
[2017-05-18] MEDS: AZITHROMYCIN 500 MG/NS 250 ML IV SCH (14:09)
[2017-05-18 15:00] VITALS: BP 122/72
[2017-05-18 19:10] VITALS: BP 150/93
[2017-05-18 22:49] LABS: OCCULT BLOOD STOOL SINGLE ONLY POSITIVE (NEGATIVE)
[2017-05-18 23:38] VITALS: BP 143/84
[2017-05-19] MEDS: OxyCODONE HCL/ACETAMINOPHEN 5-325 MG TABLET PO PRN ×2 (02:45→10:56)
[2017-05-19 05:10] VITALS: BP 124/76
[2017-05-19] MEDS: PIPERACILLIN SODIUM/TAZOBACTAM 2.25 GM in DEXTROSE 5%-WATER 50 ML IV SCH ×4 (05:33→23:30)
[2017-05-19 06:19] LABS: CALCIUM, TOTAL 8.3 mg/dL (8.8-10.5); CREATININE 2.71 mg/dL (0.60-1.30); MAGNESIUM 1.8 mg/dL (1.80-2.40); PHOSPHORUS 3.5 mg/dL (2.5-4.9)
[2017-05-19 06:26] LABS: HEMATOCRIT 31.4 % (36-46); HEMOGLOBIN 10.1 g/dL (12.0-16.0); MEAN CORPUSCULAR HEMOGLOBIN 25.7 pg (26.0-34.0); MEAN CORPUSCULAR HGB CONC 32.1 G/dL (31.0-37.0); MEAN CORPUSCULAR VOLUME 80 fL (80-100); PLATELET COUNT (AUTO) 207 K/uL (150-450); RED BLOOD CELL COUNT(AUTO) 3.93 MIL/uL (4.00-5.20); RED CELL DISTRIBUTION WIDTH 18.6 % (11.5-14.5); WHITE BLOOD COUNT (AUTO) 24.7 K/uL (4.5-11.0)
[2017-05-19 07:06] LABS: POTASSIUM 2.9 mmol/L (3.5-5.1)
[2017-05-19 07:24] VITALS: BP 141/78
[2017-05-19] MEDS: HEPARIN SODIUM,PORCINE 5,000 UNITS/ML VIAL SQ SCH ×2 (08:27→20:17)
[2017-05-19] MEDS: DOCUSATE SODIUM 100 MG CAPSULE PO SCH ×2 (08:28→21:00)
[2017-05-19] MEDS: PredniSONE 20 MG TABLET PO SCH (08:28)
[2017-05-19] MEDS: METOPROLOL TARTRATE 50 MG TABLET PO SCH ×2 (08:28→20:18)
[2017-05-19] MEDS: POTASSIUM CHLORIDE 20 MEQ ER TABLET PO SCH (08:28)
[2017-05-19] MEDS: BUMETANIDE 1 MG TABLET PO SCH (08:28)
[2017-05-19] MEDS: AMIODARONE HCL 200 MG TABLET PO SCH ×2 (08:28→20:17)
[2017-05-19] MEDS: HydrALAZINE HCL 50 MG TABLET PO SCH ×3 (08:28→20:18)
[2017-05-19] MEDS: ASPIRIN 81 MG CHEWABLE TABLET PO SCH (08:28)
[2017-05-19] MEDS: METOLAZONE 2.5 MG TABLET PO SCH (08:28)
[2017-05-19] MEDS: QUEtiapine FUMARATE 25 MG TABLET PO SCH ×2 (08:28→20:17)
[2017-05-19] MEDS: AmLODIPine BESYLATE 5 MG TABLET PO SCH ×2 (08:28→20:18)
[2017-05-19] MEDS: NYSTATIN 15 GM POWDER BOTTLE TP SCH (08:29)
[2017-05-19] MEDS: MULTIVITAMINS WITH MINERALS, THERAPEUTIC TABLET PO SCH (08:29)
[2017-05-19] MEDS: PANTOPRAZOLE SODIUM 40 MG DR TABLET PO SCH (08:29)
[2017-05-19 09:34] LABS: BAND NEUTROPHILS % (MANUAL) 1 % (1-5); LYMPHOCYTES % (MANUAL) 2 % (22-44); TOTAL CELLS COUNTED 100
[2017-05-19 09:35] LABS: RBC MORPHOLOGY COMMENT ABNORMAL R
[2017-05-19] MEDS ORDERED: POTASSIUM CHLORIDE 20 MEQ ER TABLET PO ONE (09:45)
[2017-05-19 11:43] VITALS: BP 141/71
[2017-05-19] MEDS ORDERED: MAGNESIUM SULFATE 2 GM in DEXTROSE 5%-WATER 50 ML IV ONE (12:15)
[2017-05-19] MEDS: AZITHROMYCIN 500 MG/NS 250 ML IV SCH (13:27)
[2017-05-19 15:47] VITALS: BP 145/70
[2017-05-19 17:34] LABS: ALBUMIN 2.7 g/dL (3.4-5.0); BILIRUBIN,TOTAL 0.9 mg/dL (0.1-1.0); CALCIUM, TOTAL 8.2 mg/dL (8.8-10.5); CREATININE 2.57 mg/dL (0.60-1.30); MAGNESIUM 2.1 mg/dL (1.80-2.40); POTASSIUM 3.3 mmol/L (3.5-5.1); TOTAL PROTEIN, SERUM 5.4 g/dL (6.4-8.2)
[2017-05-19 19:18] VITALS: BP 154/88
[2017-05-19 23:25] VITALS: BP 123/68
[2017-05-20] MEDS: PIPERACILLIN SODIUM/TAZOBACTAM 2.25 GM in DEXTROSE 5%-WATER 50 ML IV SCH ×4 (05:12→23:37)
[2017-05-20 05:45] VITALS: BP 142/75
[2017-05-20 06:37] LABS: CALCIUM, TOTAL 8.4 mg/dL (8.8-10.5); CREATININE 2.45 mg/dL (0.60-1.30)
[2017-05-20 06:40] LABS: HEMATOCRIT 27.7 % (36-46); HEMOGLOBIN 9.1 g/dL (12.0-16.0); MEAN CORPUSCULAR HEMOGLOBIN 25.8 pg (26.0-34.0); MEAN CORPUSCULAR HGB CONC 32.8 G/dL (31.0-37.0); MEAN CORPUSCULAR VOLUME 79 fL (80-100); PLATELET COUNT (AUTO) 199 K/uL (150-450); RED BLOOD CELL COUNT(AUTO) 3.53 MIL/uL (4.00-5.20); WHITE BLOOD COUNT (AUTO) 28.1 K/uL (4.5-11.0)
[2017-05-20 06:55] LABS: POTASSIUM 2.9 mmol/L (3.5-5.1)
[2017-05-20 07:08] LABS: MAGNESIUM 1.9 mg/dL (1.80-2.40); PHOSPHORUS 2.9 mg/dL (2.5-4.9)
[2017-05-20 07:53] VITALS: BP 136/71
[2017-05-20] MEDS ORDERED: POTASSIUM CHLORIDE 20 MEQ ER TABLET PO ONE ×2 (08:00→15:00)
[2017-05-20] MEDS: HEPARIN SODIUM,PORCINE 5,000 UNITS/ML VIAL SQ SCH ×2 (08:39→20:28)
[2017-05-20] MEDS: ASPIRIN 81 MG CHEWABLE TABLET PO SCH (08:40)
[2017-05-20] MEDS: PANTOPRAZOLE SODIUM 40 MG DR TABLET PO SCH (08:40)
[2017-05-20] MEDS: QUEtiapine FUMARATE 25 MG TABLET PO SCH ×2 (08:40→20:28)
[2017-05-20] MEDS: HydrALAZINE HCL 50 MG TABLET PO SCH ×3 (08:40→20:28)
[2017-05-20] MEDS: MULTIVITAMINS WITH MINERALS, THERAPEUTIC TABLET PO SCH (08:40)
[2017-05-20] MEDS: AMIODARONE HCL 200 MG TABLET PO SCH ×2 (08:40→20:28)
[2017-05-20] MEDS: AmLODIPine BESYLATE 5 MG TABLET PO SCH ×2 (08:41→20:28)
[2017-05-20] MEDS: POTASSIUM CHLORIDE 20 MEQ ER TABLET PO SCH (08:41)
[2017-05-20] MEDS: METOPROLOL TARTRATE 50 MG TABLET PO SCH ×2 (08:41→20:28)
[2017-05-20] MEDS: DOCUSATE SODIUM 100 MG CAPSULE PO SCH ×2 (08:42→20:34)
[2017-05-20] MEDS: NYSTATIN 15 GM POWDER BOTTLE TP SCH (08:45)
[2017-05-20] MEDS ORDERED: PredniSONE 20 MG TABLET PO SCH (09:00)
[2017-05-20 10:22] LABS: BAND NEUTROPHILS % (MANUAL) 2 % (1-5); LYMPHOCYTES % (MANUAL) 3 % (22-44); TOTAL CELLS COUNTED 100
[2017-05-20 10:27] LABS: RBC MORPHOLOGY COMMENT ABNORMAL R
[2017-05-20 11:17] VITALS: BP 160/75
[2017-05-20] MEDS: AZITHROMYCIN 500 MG/NS 250 ML IV SCH (14:16)
[2017-05-20 16:13] VITALS: BP_SYST 120; BP_SYST 141; BP_DIAS 65; BP_DIAS 77
[2017-05-20 19:25] VITALS: BP 133/80
[2017-05-20 23:33] VITALS: BP 131/67
[2017-05-21] VITALS (19 sets, daily range): BP systolic 106–165; BP diastolic 50–82
[2017-05-21] MEDS: PIPERACILLIN SODIUM/TAZOBACTAM 2.25 GM in DEXTROSE 5%-WATER 50 ML IV SCH ×3 (05:54→18:46)
[2017-05-21 06:26] LABS: CALCIUM, TOTAL 8.4 mg/dL (8.8-10.5); CREATININE 2.14 mg/dL (0.60-1.30); POTASSIUM 3.3 mmol/L (3.5-5.1)
[2017-05-21 07:43] LABS: HEMATOCRIT 21.2 % (36-46); MEAN CORPUSCULAR HEMOGLOBIN 25.6 pg (26.0-34.0); MEAN CORPUSCULAR HGB CONC 32.2 G/dL (31.0-37.0); MEAN CORPUSCULAR VOLUME 79 fL (80-100); PLATELET COUNT (AUTO) 150 K/uL (150-450); RED BLOOD CELL COUNT(AUTO) 2.67 MIL/uL (4.00-5.20); RED CELL DISTRIBUTION WIDTH 18.6 % (11.5-14.5); WHITE BLOOD COUNT (AUTO) 22.4 K/uL (4.5-11.0)
[2017-05-21 07:52] LABS: HEMOGLOBIN 6.8 g/dL (12.0-16.0)
[2017-05-21] MEDS: ASPIRIN 81 MG CHEWABLE TABLET PO SCH (08:42)
[2017-05-21] MEDS: MULTIVITAMINS WITH MINERALS, THERAPEUTIC TABLET PO SCH (08:42)
[2017-05-21] MEDS: HydrALAZINE HCL 50 MG TABLET PO SCH ×3 (08:42→20:50)
[2017-05-21] MEDS: METOPROLOL TARTRATE 50 MG TABLET PO SCH ×2 (08:43→20:50)
[2017-05-21] MEDS: AMIODARONE HCL 200 MG TABLET PO SCH ×2 (08:43→20:49)
[2017-05-21] MEDS: POTASSIUM CHLORIDE 20 MEQ ER TABLET PO SCH (08:43)
[2017-05-21] MEDS: AmLODIPine BESYLATE 5 MG TABLET PO SCH ×2 (08:43→20:50)
[2017-05-21] MEDS: QUEtiapine FUMARATE 25 MG TABLET PO SCH ×2 (08:43→20:50)
[2017-05-21] MEDS: DOCUSATE SODIUM 100 MG CAPSULE PO SCH ×2 (08:44→20:53)
[2017-05-21 09:00] LABS: BAND NEUTROPHILS % (MANUAL) 6 % (1-5); LYMPHOCYTES % (MANUAL) 4 % (22-44); TOTAL CELLS COUNTED 100
[2017-05-21] MEDS ORDERED: PANTOPRAZOLE SODIUM 40 MG DR TABLET PO SCH (09:00)
[2017-05-21 09:01] LABS: RBC MORPHOLOGY COMMENT ABNORMAL RBC MORPH
[2017-05-21] MEDS ORDERED: SODIUM CHLORIDE 0.9% 250 ML IV ONE (10:31)
[2017-05-21] MEDS ORDERED: POTASSIUM CHLORIDE 10% 40 MEQ/30 ML LIQUID UDCUP PO ONE (11:15)
[2017-05-21] MEDS ORDERED: FUROSEMIDE 40 MG/4 ML VIAL IVP ONE (11:15)
[2017-05-21] MEDS ORDERED: LIDOCAINE HCL/PF 2% 5 ML SYRINGE IVP ONE (12:00)
[2017-05-21] MEDS ORDERED: PROPOFOL 1% 20 ML VIAL IVP ONE (12:00)
[2017-05-21] MEDS ORDERED: SODIUM CHLORIDE 0.9% 1,000 ML IV ONE (13:50)
[2017-05-21] MEDS ORDERED: EPINEPHrine 1:10,000 [1 MG/10 ML] SYRINGE ONE (14:10)
[2017-05-21] MEDS: NYSTATIN 15 GM POWDER BOTTLE TP SCH (14:32)
[2017-05-21] MEDS: AZITHROMYCIN 500 MG/NS 250 ML IV SCH (16:43)
[2017-05-21] MEDS: PANTOPRAZOLE SODIUM 80 MG in SODIUM CHLORIDE 0.9% 100 ML IV SCH (18:47)
[2017-05-21 18:51] LABS: HEMATOCRIT 26.7 % (36-46); HEMOGLOBIN 8.7 g/dL (12.0-16.0)
[2017-05-21 18:56] LABS: INR 1.1 (0.9-1.1); PROTHROMBIN TIME 12.1 SEC (9.4-11.6)
[2017-05-22] MEDS: PANTOPRAZOLE SODIUM 80 MG in SODIUM CHLORIDE 0.9% 100 ML IV SCH ×3 (03:30→19:47)
[2017-05-22 04:04] VITALS: BP 125/73
[2017-05-22] MEDS: PIPERACILLIN SODIUM/TAZOBACTAM 2.25 GM in DEXTROSE 5%-WATER 50 ML IV SCH ×6 (05:28→23:59)
[2017-05-22 06:38] LABS: EOSINOPHILS % (AUTO) 0.5 % (1.0-6.0); HEMATOCRIT 24.5 % (36-46); HEMOGLOBIN 8.1 g/dL (12.0-16.0); LYMPHOCYTES # (AUTO) 0.9 K/uL (1.0-4.8); LYMPHOCYTES % (AUTO) 4.4 % (22.0-44.0); MEAN CORPUSCULAR HEMOGLOBIN 27.3 pg (26.0-34.0); MEAN CORPUSCULAR HGB CONC 33.2 G/dL (31.0-37.0); MEAN CORPUSCULAR VOLUME 82 fL (80-100); MONOCYTES % (AUTO) 4.8 % (2.0-9.0); NEUTROPHILS # (AUTO) 18.4 K/uL (1.8-7.7); PLATELET COUNT (AUTO) 122 K/uL (150-450); RED BLOOD CELL COUNT(AUTO) 2.98 MIL/uL (4.00-5.20); WHITE BLOOD COUNT (AUTO) 20.4 K/uL (4.5-11.0)
[2017-05-22] MEDS ORDERED: SODIUM CHLORIDE 0.9% 250 ML IV ONE (06:55)
[2017-05-22 07:00] LABS: NEUTROPHILS % (AUTO) 90.3 % (40.0-70.0)
[2017-05-22 07:39] LABS: CALCIUM, TOTAL 8.2 mg/dL (8.8-10.5); CREATININE 1.92 mg/dL (0.60-1.30)
[2017-05-22 07:53] VITALS: BP 133/60
[2017-05-22] MEDS: MULTIVITAMINS WITH MINERALS, THERAPEUTIC TABLET PO SCH (08:44)
[2017-05-22] MEDS: QUEtiapine FUMARATE 25 MG TABLET PO SCH ×2 (08:44→20:50)
[2017-05-22] MEDS: AmLODIPine BESYLATE 5 MG TABLET PO SCH ×2 (08:44→20:51)
[2017-05-22] MEDS: DOCUSATE SODIUM 100 MG CAPSULE PO SCH ×2 (08:44→20:50)
[2017-05-22] MEDS: AMIODARONE HCL 200 MG TABLET PO SCH ×2 (08:44→20:50)
[2017-05-22] MEDS: POTASSIUM CHLORIDE 20 MEQ ER TABLET PO SCH (08:44)
[2017-05-22] MEDS: METOPROLOL TARTRATE 50 MG TABLET PO SCH ×2 (08:44→20:50)
[2017-05-22] MEDS: HydrALAZINE HCL 50 MG TABLET PO SCH ×3 (08:44→20:51)
[2017-05-22] MEDS: NYSTATIN 15 GM POWDER BOTTLE TP SCH (08:45)
[2017-05-22 09:04] LABS: RBC MORPHOLOGY COMMENT ABNORMAL RBC MORPH
[2017-05-22 11:15] VITALS: BP 141/50
[2017-05-22] MEDS: POTASSIUM CHL 10 MEQ/WATER 50 ML IV SCH ×3 (12:35→16:40)
[2017-05-22] MEDS ORDERED: SODIUM CHLORIDE 0.9% 1,000 ML IV ONE (14:30)
[2017-05-22] MEDS: AZITHROMYCIN 500 MG/NS 250 ML IV SCH (15:12)
[2017-05-22 15:36] VITALS: BP 126/71
[2017-05-22 19:10] VITALS: BP 140/66
[2017-05-22 23:36] VITALS: BP 113/65
[2017-05-23] VITALS (11 sets, daily range): BP systolic 115–152; BP diastolic 47–112
[2017-05-23] MEDS: PANTOPRAZOLE SODIUM 80 MG in SODIUM CHLORIDE 0.9% 100 ML IV SCH ×2 (05:40→15:35)
[2017-05-23] MEDS: PIPERACILLIN SODIUM/TAZOBACTAM 2.25 GM in DEXTROSE 5%-WATER 50 ML IV SCH ×4 (05:45→23:13)
[2017-05-23 06:23] LABS: EOSINOPHILS % (AUTO) 0.3 % (1.0-6.0); LYMPHOCYTES # (AUTO) 0.8 K/uL (1.0-4.8); LYMPHOCYTES % (AUTO) 5.1 % (22.0-44.0); MEAN CORPUSCULAR HEMOGLOBIN 27.5 pg (26.0-34.0); MEAN CORPUSCULAR VOLUME 83 fL (80-100); MONOCYTES # (AUTO) 0.8 K/uL (0.1-1.0); MONOCYTES % (AUTO) 4.7 % (2.0-9.0); NEUTROPHILS # (AUTO) 14.5 K/uL (1.8-7.7); PLATELET COUNT (AUTO) 108 K/uL (150-450); RED BLOOD CELL COUNT(AUTO) 2.52 MIL/uL (4.00-5.20); RED CELL DISTRIBUTION WIDTH 18.7 % (11.5-14.5); WHITE BLOOD COUNT (AUTO) 16.1 K/uL (4.5-11.0)
[2017-05-23 06:38] LABS: CALCIUM, TOTAL 8.3 mg/dL (8.8-10.5); CREATININE 1.76 mg/dL (0.60-1.30); MAGNESIUM 1.6 mg/dL (1.80-2.40); POTASSIUM 3.2 mmol/L (3.5-5.1)
[2017-05-23 06:42] LABS: NEUTROPHILS % (AUTO) 89.9 % (40.0-70.0)
[2017-05-23 06:44] LABS: HEMOGLOBIN 6.9 g/dL (12.0-16.0)
[2017-05-23 07:42] LABS: RBC MORPHOLOGY COMMENT ABNORMAL RBC MORPH
[2017-05-23] MEDS: HydrALAZINE HCL 50 MG TABLET PO SCH ×3 (07:58→20:17)
[2017-05-23] MEDS: QUEtiapine FUMARATE 25 MG TABLET PO SCH ×2 (07:58→20:17)
[2017-05-23] MEDS: AmLODIPine BESYLATE 5 MG TABLET PO SCH ×2 (07:58→20:17)
[2017-05-23] MEDS: POTASSIUM CHLORIDE 20 MEQ ER TABLET PO SCH (07:58)
[2017-05-23] MEDS: MULTIVITAMINS WITH MINERALS, THERAPEUTIC TABLET PO SCH (07:58)
[2017-05-23] MEDS: METOPROLOL TARTRATE 50 MG TABLET PO SCH ×2 (07:58→20:17)
[2017-05-23] MEDS: AMIODARONE HCL 200 MG TABLET PO SCH ×2 (07:58→20:17)
[2017-05-23] MEDS: DOCUSATE SODIUM 100 MG CAPSULE PO SCH ×2 (07:59→20:19)
[2017-05-23] MEDS: NYSTATIN 15 GM POWDER BOTTLE TP SCH (08:01)
[2017-05-23] MEDS ORDERED: POTASSIUM CHLORIDE 20 MEQ ER TABLET PO ONE (08:45)
[2017-05-23] MEDS ORDERED: MAGNESIUM SULFATE 2 GM in DEXTROSE 5%-WATER 50 ML IV ONE (09:00)
[2017-05-23] MEDS: AZITHROMYCIN 500 MG/NS 250 ML IV SCH (13:30)
[2017-05-23] MEDS: HYDROmorphone 2 MG/ML SYRINGE IVP PRN (16:15)
[2017-05-24 03:00] VITALS: BP 123/59
[2017-05-24] MEDS: PANTOPRAZOLE SODIUM 80 MG in SODIUM CHLORIDE 0.9% 100 ML IV SCH ×3 (03:40→23:53)
[2017-05-24] MEDS: PIPERACILLIN SODIUM/TAZOBACTAM 2.25 GM in DEXTROSE 5%-WATER 50 ML IV SCH ×4 (06:15→23:53)
[2017-05-24 07:32] VITALS: BP 136/61
[2017-05-24 07:34] LABS: EOSINOPHILS # (AUTO) 0.03 K/uL (0.00-0.70); EOSINOPHILS % (AUTO) 0.25 % (1.0-6.0); HEMATOCRIT 22.7 % (36-46); HEMOGLOBIN 7.5 g/dL (12.0-16.0); LYMPHOCYTES # (AUTO) 0.8 K/uL (1.0-4.8); LYMPHOCYTES % (AUTO) 5.5 % (22.0-44.0); MEAN CORPUSCULAR HEMOGLOBIN 27.9 pg (26.0-34.0); MEAN CORPUSCULAR HGB CONC 33.2 G/dL (31.0-37.0); MEAN CORPUSCULAR VOLUME 84 fL (80-100); MONOCYTES # (AUTO) 0.6 K/uL (0.1-1.0); MONOCYTES % (AUTO) 4.2 % (2.0-9.0); NEUTROPHILS # (AUTO) 12.2 K/uL (1.8-7.7); PLATELET COUNT (AUTO) 98 K/uL (150-450); RED CELL DISTRIBUTION WIDTH 17.7 % (11.5-14.5); WHITE BLOOD COUNT (AUTO) 13.5 K/uL (4.5-11.0)
[2017-05-24 08:00] LABS: CALCIUM, TOTAL 8.5 mg/dL (8.8-10.5); CREATININE 1.68 mg/dL (0.60-1.30); POTASSIUM 3.3 mmol/L (3.5-5.1)
[2017-05-24] MEDS: AMIODARONE HCL 200 MG TABLET PO SCH ×2 (08:11→20:14)
[2017-05-24] MEDS: AmLODIPine BESYLATE 5 MG TABLET PO SCH ×2 (08:11→20:14)
[2017-05-24] MEDS: DOCUSATE SODIUM 100 MG CAPSULE PO SCH ×2 (08:11→20:14)
[2017-05-24] MEDS: HydrALAZINE HCL 50 MG TABLET PO SCH ×3 (08:11→20:14)
[2017-05-24] MEDS: QUEtiapine FUMARATE 25 MG TABLET PO SCH ×2 (08:11→20:14)
[2017-05-24] MEDS: MULTIVITAMINS WITH MINERALS, THERAPEUTIC TABLET PO SCH (08:12)
[2017-05-24] MEDS: POTASSIUM CHLORIDE 20 MEQ ER TABLET PO SCH (08:12)
[2017-05-24] MEDS: NYSTATIN 15 GM POWDER BOTTLE TP SCH (08:12)
[2017-05-24] MEDS: METOPROLOL TARTRATE 50 MG TABLET PO SCH ×2 (08:26→20:14)
[2017-05-24] MEDS: ALBUTEROL SULFATE 2.5 MG/0.5 ML NEB SOLUTION NEB PRN ×2 (08:44→16:10)
[2017-05-24] MEDS: IPRATROPIUM BROMIDE 0.5 MG/2.5 ML NEB SOLUTION NEB PRN ×3 (08:44→20:41)
[2017-05-24 09:03] LABS: RBC MORPHOLOGY COMMENT ABNORMAL RBC MORPH
[2017-05-24 11:14] VITALS: BP 145/65
[2017-05-24] MEDS ORDERED: POTASSIUM CHLORIDE 20 MEQ ER TABLET PO ONE (14:15)
[2017-05-24] MEDS ORDERED: SODIUM CHLORIDE 0.9% 250 ML IV ONE (14:50)
[2017-05-24] MEDS: AZITHROMYCIN 500 MG/NS 250 ML IV SCH (14:52)
[2017-05-24 16:15] VITALS: BP 121/66
[2017-05-24] MEDS: ACYCLOVIR 200 MG CAPSULE PO SCH ×2 (17:22→21:52)
[2017-05-24 19:40] VITALS: BP 134/78
[2017-05-24] MEDS: ALBUTEROL SULFATE 2.5 MG/0.5 ML NEB SOLUTION NEB SCH (20:41)
[2017-05-24 23:44] VITALS: BP 145/57
[2017-05-25] MEDS ORDERED: 0.9% SODIUM CHLORIDE 5 ML NEB SOLUTION NEB ONE (02:38)
[2017-05-25] MEDS: ALBUTEROL SULFATE 2.5 MG/0.5 ML NEB SOLUTION NEB SCH ×4 (02:42→20:00)
[2017-05-25 05:07] VITALS: BP 137/72
[2017-05-25] MEDS: PIPERACILLIN SODIUM/TAZOBACTAM 2.25 GM in DEXTROSE 5%-WATER 50 ML IV SCH ×4 (05:41→23:35)
[2017-05-25] MEDS: ACYCLOVIR 200 MG CAPSULE PO SCH ×5 (05:41→20:57)
[2017-05-25 06:59] LABS: CALCIUM, TOTAL 8.6 mg/dL (8.8-10.5); CREATININE 1.79 mg/dL (0.60-1.30); POTASSIUM 3.3 mmol/L (3.5-5.1)
[2017-05-25 08:04] VITALS: BP 130/71
[2017-05-25] MEDS: AmLODIPine BESYLATE 5 MG TABLET PO SCH ×2 (08:14→21:00)
[2017-05-25] MEDS: QUEtiapine FUMARATE 25 MG TABLET PO SCH ×2 (08:14→19:40)
[2017-05-25] MEDS: DOCUSATE SODIUM 100 MG CAPSULE PO SCH ×2 (08:14→20:56)
[2017-05-25] MEDS: POTASSIUM CHLORIDE 20 MEQ ER TABLET PO SCH (08:14)
[2017-05-25] MEDS: HydrALAZINE HCL 50 MG TABLET PO SCH ×3 (08:14→21:00)
[2017-05-25] MEDS: NYSTATIN 15 GM POWDER BOTTLE TP SCH (08:15)
[2017-05-25] MEDS: METOPROLOL TARTRATE 50 MG TABLET PO SCH ×2 (08:15→21:00)
[2017-05-25] MEDS: MULTIVITAMINS WITH MINERALS, THERAPEUTIC TABLET PO SCH (08:15)
[2017-05-25] MEDS: AMIODARONE HCL 200 MG TABLET PO SCH ×2 (08:15→19:35)
[2017-05-25] MEDS: OxyCODONE HCL/ACETAMINOPHEN 5-325 MG TABLET PO PRN (08:18)
[2017-05-25] MEDS: IPRATROPIUM BROMIDE 0.5 MG/2.5 ML NEB SOLUTION NEB PRN ×2 (08:33→14:26)
[2017-05-25 11:56] VITALS: BP 100/59
[2017-05-25] MEDS: AZITHROMYCIN 500 MG/NS 250 ML IV SCH (14:38)
[2017-05-25] MEDS: HYDROmorphone 2 MG/ML SYRINGE IVP PRN (14:46)
[2017-05-25 15:15] VITALS: BP 116/73
[2017-05-25] MEDS ORDERED: POTASSIUM CHLORIDE 20 MEQ ER TABLET PO ONE (18:00)
[2017-05-25] MEDS: PANTOPRAZOLE SODIUM 40 MG/VIAL IVP SCH (19:35)
[2017-05-25 19:51] VITALS: BP 124/66
[2017-05-25 23:57] VITALS: BP 115/73
[2017-05-26] MEDS: ALBUTEROL SULFATE 2.5 MG/0.5 ML NEB SOLUTION NEB SCH ×4 (02:00→19:55)
[2017-05-26 04:51] VITALS: BP 143/77
[2017-05-26 05:45] LABS: EOSINOPHILS # (AUTO) 0.03 K/uL (0.00-0.70); EOSINOPHILS % (AUTO) 0.27 % (1.0-6.0); HEMOGLOBIN 7.3 g/dL (12.0-16.0); LYMPHOCYTES # (AUTO) 0.8 K/uL (1.0-4.8); MEAN CORPUSCULAR VOLUME 85 fL (80-100); MONOCYTES # (AUTO) 0.3 K/uL (0.1-1.0); MONOCYTES % (AUTO) 3.3 % (2.0-9.0); PLATELET COUNT (AUTO) 91 K/uL (150-450); RED CELL DISTRIBUTION WIDTH 19.2 % (11.5-14.5); WHITE BLOOD COUNT (AUTO) 10.1 K/uL (4.5-11.0)
[2017-05-26 05:52] LABS: CALCIUM, TOTAL 8.7 mg/dL (8.8-10.5); CREATININE 1.89 mg/dL (0.60-1.30); MAGNESIUM 2.1 mg/dL (1.80-2.40); POTASSIUM 3.4 mmol/L (3.5-5.1)
[2017-05-26] MEDS: ACYCLOVIR 200 MG CAPSULE PO SCH ×5 (06:08→21:41)
[2017-05-26] MEDS: PIPERACILLIN SODIUM/TAZOBACTAM 2.25 GM in DEXTROSE 5%-WATER 50 ML IV SCH ×3 (06:08→18:05)
[2017-05-26 06:48] LABS: NEUTROPHILS % (AUTO) 88.4 % (40.0-70.0)
[2017-05-26 07:20] VITALS: BP 122/74
[2017-05-26 08:04] VITALS: BP 131/77
[2017-05-26] MEDS: QUEtiapine FUMARATE 25 MG TABLET PO SCH ×2 (08:38→20:10)
[2017-05-26] MEDS: AMIODARONE HCL 200 MG TABLET PO SCH ×2 (08:39→20:10)
[2017-05-26] MEDS: POTASSIUM CHLORIDE 20 MEQ ER TABLET PO SCH (08:39)
[2017-05-26] MEDS: HydrALAZINE HCL 50 MG TABLET PO SCH ×3 (08:39→19:42)
[2017-05-26] MEDS: DOCUSATE SODIUM 100 MG CAPSULE PO SCH ×2 (08:39→19:41)
[2017-05-26] MEDS: PANTOPRAZOLE SODIUM 40 MG/VIAL IVP SCH ×2 (08:39→20:19)
[2017-05-26] MEDS: AmLODIPine BESYLATE 5 MG TABLET PO SCH ×2 (08:44→19:42)
[2017-05-26] MEDS: NYSTATIN 15 GM POWDER BOTTLE TP SCH (08:45)
[2017-05-26] MEDS ORDERED: 0.9% SODIUM CHLORIDE 5 ML NEB SOLUTION NEB ONE ×2 (08:46→15:12)
[2017-05-26] MEDS: MULTIVITAMINS WITH MINERALS, THERAPEUTIC TABLET PO SCH ×2 (09:00→12:04)
[2017-05-26 11:20] VITALS: BP 129/79
[2017-05-26] MEDS: METOPROLOL TARTRATE 50 MG TABLET PO SCH ×2 (12:04→19:42)
[2017-05-26] MEDS: AZITHROMYCIN 500 MG/NS 250 ML IV SCH (13:48)
[2017-05-26 15:20] VITALS: BP 114/67
[2017-05-26 19:17] VITALS: BP 109/58
[2017-05-26] MEDS: IPRATROPIUM BROMIDE 0.5 MG/2.5 ML NEB SOLUTION NEB PRN (19:55)
[2017-05-26] MEDS: HYDROmorphone 2 MG/ML SYRINGE IVP PRN (21:53)
[2017-05-27] VITALS (7 sets, daily range): BP systolic 87–134; BP diastolic 56–88
[2017-05-27] MEDS: PIPERACILLIN SODIUM/TAZOBACTAM 2.25 GM in DEXTROSE 5%-WATER 50 ML IV SCH ×5 (00:28→23:10)
[2017-05-27] MEDS: ALBUTEROL SULFATE 2.5 MG/0.5 ML NEB SOLUTION NEB SCH ×4 (01:42→20:43)
[2017-05-27] MEDS: IPRATROPIUM BROMIDE 0.5 MG/2.5 ML NEB SOLUTION NEB PRN ×3 (01:42→14:43)
[2017-05-27 08:57] LABS: EOSINOPHILS % (AUTO) 0.1 % (1.0-6.0); HEMATOCRIT 21.3 % (36-46); HEMOGLOBIN 7.2 g/dL (12.0-16.0); LYMPHOCYTES # (AUTO) 0.4 K/uL (1.0-4.8); LYMPHOCYTES % (AUTO) 4.4 % (22.0-44.0); MEAN CORPUSCULAR HEMOGLOBIN 28.2 pg (26.0-34.0); MEAN CORPUSCULAR HGB CONC 33.6 G/dL (31.0-37.0); MEAN CORPUSCULAR VOLUME 84 fL (80-100); MONOCYTES # (AUTO) 0.3 K/uL (0.1-1.0); MONOCYTES % (AUTO) 2.6 % (2.0-9.0); NEUTROPHILS # (AUTO) 9.5 K/uL (1.8-7.7); PLATELET COUNT (AUTO) 87 K/uL (150-450); RED BLOOD CELL COUNT(AUTO) 2.54 MIL/uL (4.00-5.20); RED CELL DISTRIBUTION WIDTH 19.6 % (11.5-14.5); WHITE BLOOD COUNT (AUTO) 10.2 K/uL (4.5-11.0)
[2017-05-27 09:00] LABS: NEUTROPHILS % (AUTO) 92.9 % (40.0-70.0)
[2017-05-27] MEDS: MULTIVITAMINS WITH MINERALS, THERAPEUTIC TABLET PO SCH (09:00)
[2017-05-27] MEDS: DOCUSATE SODIUM 100 MG CAPSULE PO SCH ×2 (09:00→20:29)
[2017-05-27 09:09] LABS: CALCIUM, TOTAL 8.6 mg/dL (8.8-10.5); CREATININE 1.88 mg/dL (0.60-1.30); POTASSIUM 3.1 mmol/L (3.5-5.1)
[2017-05-27 09:14] LABS: ALBUMIN 2.6 g/dL (3.4-5.0); BILIRUBIN,TOTAL 0.8 mg/dL (0.1-1.0); PHOSPHORUS 3.1 mg/dL (2.5-4.9); RBC MORPHOLOGY COMMENT ABNORMAL RBC MORPH; TOTAL PROTEIN, SERUM 5.5 g/dL (6.4-8.2)
[2017-05-27] MEDS: PANTOPRAZOLE SODIUM 40 MG/VIAL IVP SCH ×2 (09:27→20:28)
[2017-05-27] MEDS: ACYCLOVIR 200 MG CAPSULE PO SCH ×5 (09:27→23:10)
[2017-05-27] MEDS: POTASSIUM CHLORIDE 20 MEQ ER TABLET PO SCH ×2 (09:29→11:45)
[2017-05-27] MEDS: AMIODARONE HCL 200 MG TABLET PO SCH ×2 (09:29→20:29)
[2017-05-27] MEDS: AmLODIPine BESYLATE 5 MG TABLET PO SCH ×2 (09:29→20:29)
[2017-05-27] MEDS: QUEtiapine FUMARATE 25 MG TABLET PO SCH ×2 (09:29→20:28)
[2017-05-27] MEDS: METOPROLOL TARTRATE 50 MG TABLET PO SCH ×2 (09:29→20:29)
[2017-05-27] MEDS: HydrALAZINE HCL 50 MG TABLET PO SCH ×3 (09:29→20:29)
[2017-05-27] MEDS: NYSTATIN 15 GM POWDER BOTTLE TP SCH (09:37)
[2017-05-27] MEDS ORDERED: SODIUM CHLORIDE 0.9% 250 ML IV ONE (11:25)
[2017-05-27] MEDS: AZITHROMYCIN 500 MG/NS 250 ML IV SCH (13:56)
[2017-05-27] MEDS ORDERED: 0.9% SODIUM CHLORIDE 5 ML NEB SOLUTION NEB ONE (20:40)
[2017-05-27] MEDS ORDERED: SODIUM CHLORIDE 0.9% 500 ML IV ONE (23:06)
[2017-05-28 04:38] VITALS: BP 118/81
[2017-05-28] MEDS: PIPERACILLIN SODIUM/TAZOBACTAM 2.25 GM in DEXTROSE 5%-WATER 50 ML IV SCH ×3 (05:10→17:22)
[2017-05-28] MEDS: ACYCLOVIR 200 MG CAPSULE PO SCH ×5 (05:12→21:57)
[2017-05-28 05:45] LABS: CALCIUM, TOTAL 8.6 mg/dL (8.8-10.5); CREATININE 2.07 mg/dL (0.60-1.30); POTASSIUM 3.7 mmol/L (3.5-5.1)
[2017-05-28 06:22] LABS: EOSINOPHILS % (AUTO) 0.2 % (1.0-6.0); HEMATOCRIT 21.6 % (36-46); HEMOGLOBIN 7.1 g/dL (12.0-16.0); LYMPHOCYTES # (AUTO) 0.8 K/uL (1.0-4.8); LYMPHOCYTES % (AUTO) 10.5 % (22.0-44.0); MEAN CORPUSCULAR HEMOGLOBIN 28.1 pg (26.0-34.0); MEAN CORPUSCULAR HGB CONC 32.9 G/dL (31.0-37.0); MEAN CORPUSCULAR VOLUME 86 fL (80-100); MONOCYTES # (AUTO) 0.5 K/uL (0.1-1.0); NEUTROPHILS # (AUTO) 6.2 K/uL (1.8-7.7); NEUTROPHILS % (AUTO) 83.3 % (40.0-70.0); PLATELET COUNT (AUTO) 80 K/uL (150-450); RED BLOOD CELL COUNT(AUTO) 2.52 MIL/uL (4.00-5.20); RED CELL DISTRIBUTION WIDTH 20.1 % (11.5-14.5); WHITE BLOOD COUNT (AUTO) 7.5 K/uL (4.5-11.0)
[2017-05-28 07:42] VITALS: BP 133/59
[2017-05-28] MEDS: MULTIVITAMINS WITH MINERALS, THERAPEUTIC TABLET PO SCH (07:53)
[2017-05-28] MEDS: HydrALAZINE HCL 50 MG TABLET PO SCH ×4 (07:53→20:59)
[2017-05-28] MEDS: POTASSIUM CHLORIDE 20 MEQ ER TABLET PO SCH (07:53)
[2017-05-28] MEDS: DOCUSATE SODIUM 100 MG CAPSULE PO SCH ×2 (07:54→20:15)
[2017-05-28] MEDS: AmLODIPine BESYLATE 5 MG TABLET PO SCH ×2 (07:54→20:15)
[2017-05-28] MEDS: PANTOPRAZOLE SODIUM 40 MG/VIAL IVP SCH ×2 (07:54→20:15)
[2017-05-28] MEDS: AMIODARONE HCL 200 MG TABLET PO SCH ×2 (07:54→20:15)
[2017-05-28] MEDS: METOPROLOL TARTRATE 50 MG TABLET PO SCH ×3 (07:54→20:59)
[2017-05-28] MEDS: QUEtiapine FUMARATE 25 MG TABLET PO SCH ×2 (07:55→21:57)
[2017-05-28] MEDS: EPOETIN ALFA 10,000 UNITS/ML VIAL SQ SCH ×2 (08:01→08:08)
[2017-05-28] MEDS: NYSTATIN 15 GM POWDER BOTTLE TP SCH (08:07)
[2017-05-28] MEDS ORDERED: 0.9% SODIUM CHLORIDE 5 ML NEB SOLUTION NEB ONE ×3 (08:30→20:11)
[2017-05-28] MEDS: ALBUTEROL SULFATE 2.5 MG/0.5 ML NEB SOLUTION NEB SCH ×3 (08:32→20:21)
[2017-05-28 09:02] LABS: RBC MORPHOLOGY COMMENT ABNORMAL RBC MORPH
[2017-05-28] MEDS: HYDROmorphone 2 MG/ML SYRINGE IVP PRN (10:01)
[2017-05-28 10:26] LABS: COMPLEMENT C3 89 mg/dL (82-167); COMPLEMENT C4 15 mg/dL (14-44)
[2017-05-28] MEDS: IRON SUCROSE COMPLEX 200 MG in SODIUM CHLORIDE 0.9% 100 ML IV SCH (11:14)
[2017-05-28] MEDS: BUMETANIDE 1 MG TABLET PO SCH ×2 (11:18→21:57)
[2017-05-28 11:53] VITALS: BP 113/62
[2017-05-28 13:26] LABS: GLUCOSE,POINT OF CARE 103 MG/DL (70-110)
[2017-05-28] MEDS: AZITHROMYCIN 500 MG/NS 250 ML IV SCH (13:37)
[2017-05-28 19:30] VITALS: BP 105/62
[2017-05-28 23:30] VITALS: BP 109/58
[2017-05-29] MEDS: PIPERACILLIN SODIUM/TAZOBACTAM 2.25 GM in DEXTROSE 5%-WATER 50 ML IV SCH ×2 (00:12→05:45)
[2017-05-29] MEDS ORDERED: 0.9% SODIUM CHLORIDE 5 ML NEB SOLUTION NEB ONE (02:01)
[2017-05-29] MEDS: ALBUTEROL SULFATE 2.5 MG/0.5 ML NEB SOLUTION NEB SCH ×2 (02:04→08:46)
[2017-05-29 04:00] VITALS: BP 112/60
[2017-05-29] MEDS: ACYCLOVIR 200 MG CAPSULE PO SCH ×2 (05:56→08:25)
[2017-05-29 08:00] VITALS: BP 144/77
[2017-05-29] MEDS: PANTOPRAZOLE SODIUM 40 MG/VIAL IVP SCH (08:23)
[2017-05-29] MEDS: BUMETANIDE 1 MG TABLET PO SCH (08:24)
[2017-05-29] MEDS: METOPROLOL TARTRATE 50 MG TABLET PO SCH (08:24)
[2017-05-29] MEDS: POTASSIUM CHLORIDE 20 MEQ ER TABLET PO SCH (08:24)
[2017-05-29] MEDS: DOCUSATE SODIUM 100 MG CAPSULE PO SCH (08:24)
[2017-05-29] MEDS: AMIODARONE HCL 200 MG TABLET PO SCH (08:24)
[2017-05-29] MEDS: MULTIVITAMINS WITH MINERALS, THERAPEUTIC TABLET PO SCH (08:25)
[2017-05-29] MEDS: QUEtiapine FUMARATE 25 MG TABLET PO SCH (08:25)
[2017-05-29] MEDS: HydrALAZINE HCL 50 MG TABLET PO SCH (08:25)
[2017-05-29] MEDS: IPRATROPIUM BROMIDE 0.5 MG/2.5 ML NEB SOLUTION NEB PRN (08:46)
[2017-05-29] MEDS: IRON SUCROSE COMPLEX 200 MG in SODIUM CHLORIDE 0.9% 100 ML IV SCH (11:11)
[2017-05-29 12:12] VITALS: BP 136/59
== END 2017-05-29 13:25 | DRG 871 ==
LOC: EMS 09:44 → 5S 13:44 → EMS 13:46 → 5S 15:33 → 5N 05-13 20:30 → 6N 05-16 19:45
PROVIDERS: ADMIT Internal Medicine; ATTEND Internal Medicine
PROC: 0H98XZZ Drainage of Buttock Skin, External Approach (ICD-10-PCS; principal; 2017-05-15)
PROC: 0DB68ZX Excision of Stomach, Via Natural or Artificial Opening Endoscopic, Diagnostic (ICD-10-PCS; 2017-05-21)
PROC: 0DB58ZX Excision of Esophagus, Via Natural or Artificial Opening Endoscopic, Diagnostic (ICD-10-PCS; 2017-05-21)
PROC: 30233N1 Transfusion of Nonautologous Red Blood Cells into Peripheral Vein, Percutaneous Approach (ICD-10-PCS; 2017-05-21)
DX: A41.9 Sepsis, unspecified organism (principal); I50.23 Acute on chronic systolic (congestive) heart failure; E43 Unspecified severe protein-calorie malnutrition; N17.9 Acute kidney failure, unspecified; K80.00 Calculus of gallbladder with acute cholecystitis without obstruction; E66.01 Morbid (severe) obesity due to excess calories; E11.22 Type 2 diabetes mellitus with diabetic chronic kidney disease; D62 Acute posthemorrhagic anemia; L02.415 Cutaneous abscess of right lower limb; B00.89 Other herpesviral infection; J44.1 Chronic obstructive pulmonary disease with (acute) exacerbation; M62.82 Rhabdomyolysis; Z68.41 Body mass index [BMI] 40.0-44.9, adult; L02.31 Cutaneous abscess of buttock; I13.0 Hypertensive heart and chronic kidney disease with heart failure and stage 1 through stage 4 chronic kidney disease, or unspecified chronic kidney disease; I42.9 Cardiomyopathy, unspecified; E87.1 Hypo-osmolality and hyponatremia; I07.1 Rheumatic tricuspid insufficiency; I27.20 Pulmonary hypertension, unspecified; N18.3 Chronic kidney disease, stage 3 (moderate); F20.9 Schizophrenia, unspecified; R74.0 Nonspecific elevation of levels of transaminase and lactic acid dehydrogenase [LDH]; E78.5 Hyperlipidemia, unspecified; I34.0 Nonrheumatic mitral (valve) insufficiency; F99 Mental disorder, not otherwise specified; K20.8 Other esophagitis; K22.8 Other specified diseases of esophagus; E78.00 Pure hypercholesterolemia, unspecified; E87.6 Hypokalemia; I25.10 Atherosclerotic heart disease of native coronary artery without angina pectoris; K29.80 Duodenitis without bleeding; M19.90 Unspecified osteoarthritis, unspecified site; R09.02 Hypoxemia; K29.70 Gastritis, unspecified, without bleeding; D64.9 Anemia, unspecified; T50.2X5A Adverse effect of carbonic-anhydrase inhibitors, benzothiadiazides and other diuretics, initial encounter; F31.9 Bipolar disorder, unspecified; Z86.73 Personal history of transient ischemic attack (TIA), and cerebral infarction without residual deficits; Z79.899 Other long term (current) drug therapy; Z87.891 Personal history of nicotine dependence; Z90.49 Acquired absence of other specified parts of digestive tract; Z90.710 Acquired absence of both cervix and uterus; Z99.81 Dependence on supplemental oxygen; I25.2 Old myocardial infarction; Z79.82 Long term (current) use of aspirin
CPT/HCPCS: 51701; 76705; 78226; 80074; 82105; 82271; 82570; 82728; 82784; 82962; 83540; 83550; 83735; 84100; 84132; 84155; 84156; 84165; 84166; 84300; 84540; 85014; 85018; 86160; 86334; 86850; 86900; 86901; 86920; 87324; 87449; 88305; 88312; 88342; 90471; 93005; 94640; 94644; 96361; 96374; 96375; 97162; 97165; 99291; A9537; C9113; J0171; J0360; J0456; J0885; J1170; J1644; J1756; J1940; J2405; J2543; J2704; J2930; J3475; J3480; J3490; J7030; J7040; J7050; J7060; P9016